=== PATIENT | male | born 1940 | race Caucasian/White ===

== ENCOUNTER → 2023-09-19 15:21 | Outpatient (REF) | payer MEDICARE, OTHER, SELFPAY ==
[2023-09-19 19:07] LABS: Urine Albumin 2+ (Neg - Trace); Urine Bilirubin Negative (Negative); Urine Character Very Cloudy (Clear); Urine Color Yellow; Urine Glucose Negative (Negative); Urine Ketone Trace (Negative); Urine Leukocyte 2+ (Negative); Urine Nitrite Positive (Negative); Urine Occult Blood 4+ (Negative); Urine Specific Gravity 1.015 (<1.030); Urine Urobilinogen Negative (Neg - 1+)
[2023-09-19 19:27] LABS: Urine Red Blood Cell >100 /HPF (0-2)
== END ==
LOC: CLAB 15:21
PROVIDERS: ATTENDING PHYSICIAN Specialist
DX: N39.0 Urinary tract infection, site not specified (principal)
CPT/HCPCS: 81003; 81015; 87086

== ENCOUNTER 2024-03-25 10:33 | Emergency (ER) | payer MEDICARE, OTHER, SELFPAY ==
[2024-03-25 12:47] VITALS: BP 137/89
--- NOTE | 2024-03-25 12:57 | ED.GENMED ---
History of Present Illness
General
Chief Complaint: Catheter/Tube Problem
Source: patient and spouse
Exam Limitations: other (aphasia)
Time Seen by Provider: 03/25/24 12:43
Nursing documentation reviewed up to this point in time: agreed with
History of Present Illness
History of Present Illness:
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
intermittent diarrhea. Per spouse, there has not been any vomiting or fever. Of note, when his catheter was exchanged at urologist office on , there was some difficulty with catheter insertion.
Past History
Past History
ED Past Medical History: Arrthythmia (Atrial fibrillation), COPD, CVA, HTN, Hypercholesterolemia and Other (BPH, UTI, chronic Jara catheter)
ED Past Surgical History: Other (Carotids, hernia repair)
Social History
Tobacco: Former smoker (Quit after CVA)
Alcohol: None
Personal:
Living: with family
Employment: Retired
Family History
Family History: Hypertension
Review of Systems
Review of Systems
Allergies reviewed?: Yes
All Other Systems: ROS reviewed and negative except as documented in HPI and ROS
Constitutional: Reports no symptoms
EENT: Reports no symptoms
Respiratory: Reports no symptoms
Cardiac: Reports no symptoms
ABD/GI: Reports abdominal pain and diarrhea; Denies nausea or vomiting
: Reports bleeding and other (Jara catheter removal)
Musculoskeletal: Reports no symptoms
Skin: Reports no symptoms
Neurological: Reports no symptoms
Phy Exam
Physical Exam
Physical Exam:
Physical Exam
General: mild distress, not acutely ill. afebrile
Head: nc/at. eomi
Neck: supple. normal range of motion
Heart: s1/s2 regular rate and rhythm, no murmur. equal radial pulses.
Lungs: no acute respiratory distress. clear bilaterally
Abdomen: normal bowel sounds. mild suprapubic/LLQ tenderness to palpation. no distention
Neuro: alert and awake. no focal neurological deficits
Skin: no rash
Extremities: no edema. no calf tenderness.
Course
Orders/Labs/Results
Orders:
Orders
03/25/24 12:56
Bladder Scan- Treatment ONCE
Jara Placement- Treatment ONCE
Reason for insertion: Chronic Jara on Admit
03/25/24 12:57
CT Abd/pelvis W Iv Cont Urgent
Comment:
Reason For Exam: LLQ pain
03/25/24 13:53
Complete Blood Count/With Diff Urgent
Comprehensive Metabolic Panel Urgent
Magnesium Urgent
Urinalysis Reflex To Culture Urgent
Date Specimen was Collected: 03/25/24
Time Specimen was Collected: 13:50
Urine Microscopic Reflex Cult Urgent
Urine Culture Urgent
NUSRAT Source: U
Specimen Description:
Date Specimen was Collected: 03/25/24
Time Specimen was Collected: 13:50
Abnormal Lab Results
03/25/24
13:53
WBC 17.3 H 10^3/uL
(4.8-10.8)
MCV 95.3 H fL
(80.0-94.0)
MCH 32.2 H pg
(27.0-31.0)
Abs Immat Gran (auto) 0.1 H 10^3/uL
(0-0.05)
Absolute Neuts (auto) 15.7 H 10^3/uL
(1.4-6.5)
Absolute Lymphs (auto) 0.6 L 10^3/uL
(1.2-3.4)
Absolute Monos (auto) 0.9 H 10^3/uL
(0.1-0.6)
Neutrophils % 90.8 H %
(42.2-75.2)
Lymphocytes % 3.3 L %
(20.5-51.1)
Carbon Dioxide 21 L mmol/L
(22-30)
BUN 24 H mg/dl
(9-20)
Creatinine 1.4 H mg/dL
(0.7-1.3)
Glucose 153 H mg/dl
(70-99)
Calcium 10.4 H mg/dl
(8.4-10.2)
Urine Ketones Trace A
(Negative)
Ur Occult Blood Reflex 4+ A
(Negative)
Leukocyte Esterase Rfl 2+ A
(Negative)
Urine RBC >100 A /HPF
(0-2)
Urine Albumin (Reflex) 3+ A
(Neg - Trace)
03/25/24 13:53
03/25/24 13:53
Vital Signs
Initial and Last Documented VS:
Initial Vital Signs
Temp Pulse Resp Pulse Ox
98.0 F 111 18 96
03/25/24 10:41 03/25/24 10:41 03/25/24 10:41 03/25/24 10:41
Last Documented Vital Signs
Temp Pulse Resp BP Pulse Ox
98.0 F 88 18 137/80 96
03/25/24 10:41 03/25/24 15:31 03/25/24 15:31 03/25/24 15:31 03/25/24 15:31
MDM/Problems Addressed
MDM/Problems Addressed:
Jara catheter successfully inserted in ED, with clearing of initial bloody urine during observation. CT abdomen pelvis ordered secondary to nonspecific abdominal discomfort, which revealed thickening of bladder without any other acute findings.
Leukocytosis noted on blood work likely secondary to ongoing intermittent diarrhea, likely viral in nature. Otherwise urinalysis does not indicate acute infection. Discussed treatment options with spouse at bedside. At this time, patient will be
discharged home for conservative management, without any antibiotics. Advised follow-up with his urologist or consider returning to ED with any worsening symptoms, i.e. fever/worsening pain/vomiting.
*Critical Care Note
Total Time (30-74mins, 75-104mins- exclusive of procedures): Not Applicable
ED Attending Note
-
Portions of this chart may have been created with voice recognition software.� Occasional wrong word or��sound alike� substitutions may have occurred due to the inherent limitations of voice recognition software.
Discharge Plan
Departure
Patient Disposition: Home (Routine Discharge)
Date of Disposition: 03/25/24
Time of Disposition: 16:42
Patient with high blood pressure during this ER visit?: Yes
Discharge Problem:
Encounter for Jaar catheter replacement
Instructions: How to Care for Your Jara Catheter, Male
Prescriptions:
No Action
acetaminophen [Tylenol Extra Strength] 500 MG tablet
1,000 mg PO Q6HPRN PRN (Reason: fever)
metoprolol succinate 25 mg Tablet Extended Release 24 Hr
12.5 mg PO HS
omega 7-npx-dcr-fish oil [Fish Oil] 1,000 mg (120 mg-180 mg) Capsule
1 cap PO HS
ezetimibe 10 MG tablet
10 mg PO Q48H@1900
Patient Comments:
amoxicillin-pot clavulanate 875-125 mg tablet
1 tab PO Q12H Qty: 14 0RF
atorvastatin 20 MG tablet
60 mg PO HS Qty: 60 0RF
cholecalciferol (vitamin D3) 2,000 UNITS tablet
2,000 units PO HS Qty: 30 0RF
Xarelto 20 MG tablet
20 mg PO HS Qty: 30 0RF
multivitamin with folic acid [Tab-A-Christie] 1 TABLET tablet
1 tab PO HS Qty: 30 0RF
Referrals:
Sonu Sandoval MD [Active] -
Cosme Klein MD [Family Provider] -
Activity Restrictions/Additional Instructions:
As discussed, please follow-up with your primary care physician and/or urologist with any further concerns. Please consider return to ED with worsening symptoms, i.e. fever/worsening pain/vomiting.
Interventions
Interventions:
*Risk Screen - Suicide Last Done: 03/25/24 10:41
*General Assessment Last Done: 03/25/24 10:41
*Neglect/Abuse Screening Last Done: 03/25/24 10:41
*ED COVID-19 Vaccine History Last Done: 03/25/24 10:41
ZZ-Xvccgt-Ogtydvklvo Assessment Last Done: 03/25/24 13:50
ED-Male Genitourinary Assessment Last Done: 03/25/24 13:50
Discharge Date and Time
Print Language: DANISH
[2024-03-25 13:00] VITALS: BP 144/107
[2024-03-25 13:50] VITALS: BMI 24.9
[2024-03-25 14:03] LABS: % Basophils 0.1 % (0-2); % Eosinophils 0.1 % (0-6); % Immature Granulocytes 0.3 % (0-0.5); % Lymphocytes 3.3 % (20.5-51.1); % Monocytes 5.4 % (1.7-9.3); % Neutrophils 90.8 % (42.2-75.2); Absolute Immature Granulocytes 0.1 10^3/uL (0-0.05); Absolute Lymphocytes 0.6 10^3/uL (1.2-3.4); Absolute Monocytes 0.9 10^3/uL (0.1-0.6); Absolute Neutrophils 15.7 10^3/uL (1.4-6.5); Hematocrit 46.2 % (39.0-52.0); Hemoglobin 15.6 g/dL (13.0-18.0); Mean Corp Hgb Conc. 33.8 g/dL (33.0-37.0); Mean Corpuscular Hgb 32.2 pg (27.0-31.0); Mean Corpuscular Volume 95.3 fL (80.0-94.0); Mean Platelet Volume 10.1 fL (7.4-10.4); Nucleated Red Blood Cells % 0 % (-); Platelet Count 237 10^3/uL (130-400); Red Blood Cell Count 4.85 10^6/uL (4.70-6.10); Red Cell Dist. Width 12.9 % (11.5-14.5); White Blood Cell Count 17.3 10^3/uL (4.8-10.8)
[2024-03-25 14:04] LABS: Urine Albumin 3+ (Neg - Trace); Urine Bilirubin Negative (Negative); Urine Character Bloody (Clear); Urine Color Red; Urine Glucose Negative (Negative); Urine Ketone Trace (Negative); Urine Leukocyte 2+ (Negative); Urine Nitrite Negative (Negative); Urine Occult Blood 4+ (Negative); Urine Specific Gravity 1.015 (<1.030); Urine Urobilinogen Negative (Neg - 1+); Urine pH 6.5 (5.0-9.0)
[2024-03-25 14:14] LABS: AST (SGOT) 36 U/L (17-59); Albumin 4.6 g/dl (3.5-5.0); Alkaline Phosphatase 117 U/L (38-126); Blood Urea Nitrogen 24 mg/dl (9-20); Calcium 10.4 mg/dl (8.4-10.2); Carbon Dioxide 21 mmol/L (22-30); Chloride 105 mmol/L (98-107); Estimated Creatinine Clearance 39 ml/min; Glucose 153 mg/dl (70-99); Magnesium 2.3 mg/dl (1.6-2.3); Potassium 4.5 mmol/L (3.5-5.1); Sodium 142 mmol/L (135-145); Total Bilirubin 0.7 mg/dl (0.2-1.3); Total Protein 7.7 g/dl (6.3-8.2); eGFR 49.56
[2024-03-25 14:20] LABS: ALT (SGPT) 41 U/L (0-50)
[2024-03-25 14:32] LABS: Urine Red Blood Cell >100 /HPF (0-2)
[2024-03-25 15:31] VITALS: BP 137/80
[2024-03-25 17:00] VITALS: BP 148/89
== END 2024-03-25 17:21 | disposition home or self-care (01) ==
LOC: EMR 10:33
PROVIDERS: EMERGENCY PHYSICIAN Emergency Medicine; FAMILY PHYSICIAN Family Medicine
DX: R10.32 Left lower quadrant pain (principal); Z46.6 Encounter for fitting and adjustment of urinary device; R19.7 Diarrhea, unspecified; E78.00 Pure hypercholesterolemia, unspecified; I10 Essential (primary) hypertension; J44.9 Chronic obstructive pulmonary disease, unspecified; I69.920 Aphasia following unspecified cerebrovascular disease; Z79.01 Long term (current) use of anticoagulants; Z87.891 Personal history of nicotine dependence
CPT/HCPCS: 99284; 51702; 74177; 80053; 81003; 81015; 83735; 85025; 87086; Q9967

== ENCOUNTER 2024-04-18 12:03 | Emergency (ER) | payer MEDICARE, OTHER, SELFPAY ==
[2024-04-18 12:06] VITALS: BP 137/86
[2024-04-18 12:49] VITALS: BP 147/80
[2024-04-18 13:10] VITALS: BP 147/80; BMI 23.5
[2024-04-18 13:22] LABS: Urine Albumin 1+ (Neg - Trace); Urine Bilirubin Negative (Negative); Urine Character Slightly Cloudy (Clear); Urine Color Yellow; Urine Glucose Negative (Negative); Urine Ketone Negative (Negative); Urine Leukocyte 2+ (Negative); Urine Nitrite Positive (Negative); Urine Occult Blood 4+ (Negative); Urine Specific Gravity 1.015 (<1.030); Urine Urobilinogen Negative (Neg - 1+)
--- NOTE | 2024-04-18 13:47 | ED.GENMED ---
Addendum entered and electronically signed by Lang Kruger PA-C 04/21/24 07:55:
Urine culture shows greater than 100,000 colony-forming units of staph. Sensitivities pending
Original Note:
History of Present Illness
General
Chief Complaint: Male Genito-Urinary Symptoms
Source: patient
Exam Limitations: dementia
Time Seen by Provider: 04/18/24 13:05
Nursing documentation reviewed up to this point in time: agreed with
History of Present Illness
History of Present Illness:
83-year-old male with past medical history of chronic indwelling Jara presenting to the emergency department with lack of Jara drainage since last night. Denies any abdominal pain or additional concerns. Does have a history of dementia most of
history is obtained through the . In no distress during my assessment.
Past History
Past History
ED Past Medical History: Arrthythmia (Atrial fibrillation), COPD, CVA, HTN, Hypercholesterolemia and Other (BPH, UTI, chronic Jara catheter)
ED Past Surgical History: Other (Carotids, hernia repair)
Social History
Tobacco: Former smoker (Quit after CVA)
Alcohol: None
Personal:
Living: with family
Employment: Retired
Family History
Family History: Hypertension
Review of Systems
Review of Systems
Allergies reviewed?: Yes
All Other Systems: ROS reviewed and negative except as documented in HPI and ROS
Phy Exam
Physical Exam
Physical Exam:
GENERAL: Alert , in no apparent distress
EYE: pupils equal and reactive
NECK: Supple, no significant adenopathy.
ENT: o/p clr, mmm.
CARDIAC: Regular rate and rhythm .
LUNGS: Clear breath sounds bilaterally, no acute respiratory distress, no wheezes/rales/rhonchi
ABDOMEN: Soft, without focal tenderness, no r/g, no cvat
NEUROLOGICAL: Alert , no focal neuro deficits
SKIN: Warm and dry, skin intact.
MUSCULOSKELETAL: No edema, well perfused.
PSYCH: Normal and appropriate interaction.
Course
Orders/Labs/Results
Orders:
Orders
04/18/24 13:11
Jara Placement- Treatment ONCE
Reason for insertion: Acute Retention
04/18/24 13:17
Urinalysis Reflex To Culture Urgent
Date Specimen was Collected: 04/18/24
Time Specimen was Collected: 13:11
Urine Microscopic Reflex Cult Urgent
Urine Culture Urgent
NUSRAT Source: U
Specimen Description:
Date Specimen was Collected: 04/18/24
Time Specimen was Collected: 13:11
04/18/24 13:47
Cephalexin Monohydrate [Keflex] 500 mg PO NOW STA
Abnormal Lab Results
04/18/24
13:17
Ur Occult Blood Reflex 4+ A
(Negative)
Urine Nitrite (Reflex) Positive A
(Negative)
Leukocyte Esterase Rfl 2+ A
(Negative)
Urine RBC 16-20 A /HPF
(0-2)
Urine WBC (Reflex) 70-80 A /HPF
(0-5)
Urine Bacteria (Reflex) Many A
(Negative)
Urine Albumin (Reflex) 1+ A
(Neg - Trace)
Vital Signs
Initial and Last Documented VS:
Initial Vital Signs
Temp Pulse Resp BP Pulse Ox
98.2 F 110 16 137/86 98
04/18/24 12:06 04/18/24 12:06 04/18/24 12:06 04/18/24 12:06 04/18/24 12:06
Last Documented Vital Signs
Temp Pulse Resp BP Pulse Ox
97.6 F 95 20 152/69 96
04/18/24 13:10 04/18/24 13:10 04/18/24 13:10 04/18/24 14:00 04/18/24 14:00
MDM/Problems Addressed
MDM/Problems Addressed:
83-year-old male presenting to the emergency department today with concerns of lack of drainage from his Jara catheter. This is an indwelling Jara catheter. No distress otherwise mildly tachycardic on arrival but improved without specific
treatment. Jara catheter replaced with full drainage of the bladder. This was confirmed with bladder scan. Urinalysis appears to be potentially infected this was treated with antibiotic otherwise stable for outpatient follow-up. Return
precautions given.
*Critical Care Note
Total Time (30-74mins, 75-104mins- exclusive of procedures): Not Applicable
ED Attending Note
-
Portions of this chart may have been created with voice recognition software.� Occasional wrong word or��sound alike� substitutions may have occurred due to the inherent limitations of voice recognition software.
Discharge Plan
Departure
Patient Disposition: Home (Routine Discharge)
Date of Disposition: 04/18/24
Time of Disposition: 13:48
Patient with high blood pressure during this ER visit?: No
Condition: Good
Covid-19: Not Applicable
Discharge Problem:
Acute UTI, Jara catheter problem
Instructions: Urinary Retention (DC)
Prescriptions:
New
cephalexin 500 mg capsule
500 mg PO BID 7 Days Qty: 14 0RF
No Action
acetaminophen [Tylenol Extra Strength] 500 MG tablet
1,000 mg PO Q6HPRN PRN (Reason: fever)
metoprolol succinate 25 mg Tablet Extended Release 24 Hr
12.5 mg PO HS
omega 7-wew-qsi-fish oil [Fish Oil] 1,000 mg (120 mg-180 mg) Capsule
1 cap PO HS
ezetimibe 10 MG tablet
10 mg PO Q48H@1900
Patient Comments:
amoxicillin-pot clavulanate 875-125 mg tablet
1 tab PO Q12H Qty: 14 0RF
atorvastatin 20 MG tablet
60 mg PO HS Qty: 60 0RF
cholecalciferol (vitamin D3) 2,000 UNITS tablet
2,000 units PO HS Qty: 30 0RF
Xarelto 20 MG tablet
20 mg PO HS Qty: 30 0RF
multivitamin with folic acid [Tab-A-Christie] 1 TABLET tablet
1 tab PO HS Qty: 30 0RF
Referrals:
Cosme Klein MD [Family Provider] -
Activity Restrictions/Additional Instructions:
You came to the emergency department today with concerns of difficulty with him. You had your Jara replaced. It does appear that you likely have a urinary tract infection. Please take prescribed antibiotic. Please follow closely with your
urologist. Return for any worsening, new or concerning symptoms.
Interventions
Interventions:
*Risk Screen - Suicide Last Done: 04/18/24 12:06
*General Assessment Last Done: 04/18/24 13:10
*Neglect/Abuse Screening Last Done: 04/18/24 12:06
ED- Fall Risk Assessment Last Done: 04/18/24 13:10
*ED COVID-19 Vaccine History Last Done: 04/18/24 13:10
*Nursing Disposition Last Done: 04/18/24 14:24
ED-Male Genitourinary Assessment Last Done: 04/18/24 13:10
Discharge Date and Time
Discharge Date/Time: 04/18/24 14:26
Print Language: DANISH
[2024-04-18 14:00] VITALS: BP 152/69
[2024-04-18 14:18] LABS: Urine Bacteria Many (Negative); Urine Red Blood Cell 16-20 /HPF (0-2); Urine White Cell 70-80 /HPF (0-5)
== END 2024-04-18 14:26 | disposition home or self-care (01) ==
LOC: EMR 12:03
PROVIDERS: Physician Assistant; EMERGENCY PHYSICIAN Student in an Organized Health Care Education/Training Program; FAMILY PHYSICIAN Family Medicine
DX: N39.0 Urinary tract infection, site not specified (principal); T83.091A Other mechanical complication of indwelling urethral catheter, initial encounter; Y84.8 Other medical procedures as the cause of abnormal reaction of the patient, or of later complication, without mention of misadventure at the time of the procedure; E78.00 Pure hypercholesterolemia, unspecified; I10 Essential (primary) hypertension; F03.90 Unspecified dementia, unspecified severity, without behavioral disturbance, psychotic disturbance, mood disturbance, and anxiety; J44.9 Chronic obstructive pulmonary disease, unspecified; I48.91 Unspecified atrial fibrillation; N40.0 Benign prostatic hyperplasia without lower urinary tract symptoms; Z86.73 Personal history of transient ischemic attack (TIA), and cerebral infarction without residual deficits; Z87.891 Personal history of nicotine dependence
CPT/HCPCS: 51702; 99283; 81003; 81015; 87086; 87147

== ENCOUNTER → 2024-05-25 12:55 | Outpatient (REF) | payer MEDICARE, OTHER, SELFPAY | LOC: SDSPAT 12:55 | PROVIDERS: ATTENDING PHYSICIAN Specialist; FAMILY PHYSICIAN Family Medicine | DX: N21.0 Calculus in bladder (principal) | CPT/HCPCS: 36415; 93005 ==

== ENCOUNTER 2024-06-02 06:35 | Day surgery (SDC) | payer MEDICARE, OTHER, SELFPAY ==
[2024-05-25 14:08] VITALS: BMI 25.2
[2024-06-02] VITALS (9 sets, daily range): BP systolic 127–173; BP diastolic 64–95; BMI 25.2
[2024-06-02 10:54] LABS: Urine Albumin 3+ (Neg - Trace); Urine Bilirubin Negative (Negative); Urine Character Clear (Clear); Urine Color Yellow; Urine Glucose Negative (Negative); Urine Ketone Negative (Negative); Urine Leukocyte 3+ (Negative); Urine Nitrite Negative (Negative); Urine Occult Blood 4+ (Negative); Urine Specific Gravity 1.025 (<1.030); Urine Urobilinogen Negative (Neg - 1+)
[2024-06-02] MEDS: NORMOSOL-R/PLASMALYTE-A 1000 IV (11:15)
[2024-06-02 12:50] LABS: Urine Calcium Oxalate Crystals Seen; Urine White Cell >100 /HPF (0-5)
[2024-06-02 12:51] LABS: Urine Bacteria Moderate (Negative); Urine Squamous Cell 0-2 /LPF (Few)
== END 2024-06-02 19:07 | disposition home or self-care (01) ==
LOC: SDS 06:35
PROVIDERS: ATTENDING PHYSICIAN Specialist
DX: N21.0 Calculus in bladder (principal); N31.2 Flaccid neuropathic bladder, not elsewhere classified; I69.198 Other sequelae of nontraumatic intracerebral hemorrhage
CPT/HCPCS: 52317; 81003; 81015; 82365; 87086; J1580

== ENCOUNTER → 2024-06-17 16:35 | Outpatient (REF) | payer MEDICARE, OTHER, SELFPAY ==
[2024-06-17 17:00] LABS: Urine Albumin 3+ (Neg - Trace); Urine Bilirubin Negative (Negative); Urine Character Cloudy (Clear); Urine Glucose Negative (Negative); Urine Ketone Negative (Negative); Urine Leukocyte 3+ (Negative); Urine Nitrite Positive (Negative); Urine Occult Blood 4+ (Negative); Urine Urobilinogen Negative (Neg - 1+)
[2024-06-17 17:11] LABS: Urine Color Pink
[2024-06-17 17:41] LABS: Urine Bacteria Moderate (Negative); Urine Red Blood Cell >100 /HPF (0-2); Urine White Cell >100 /HPF (0-5)
== END ==
LOC: CLAB 16:35
PROVIDERS: ATTENDING PHYSICIAN Specialist
DX: N39.0 Urinary tract infection, site not specified (principal)
CPT/HCPCS: 81003; 81015; 87077; 87086

== ENCOUNTER → 2024-11-02 11:39 | Outpatient (REF) | payer MEDICARE, OTHER, SELFPAY ==
[2024-11-02 19:42] LABS: Urine Character Cloudy (Clear)
[2024-11-02 19:54] LABS: Urine Squamous Cell 0-2 /LPF (Few)
[2024-11-02 19:55] LABS: Urine Red Blood Cell 0-2 /HPF (0-2); Urine White Cell 60-70 /HPF (0-5)
== END ==
LOC: CLAB 11:39
PROVIDERS: ATTENDING PHYSICIAN Specialist
DX: N39.0 Urinary tract infection, site not specified (principal)
CPT/HCPCS: 81003; 81015; 87086

== ENCOUNTER 2025-03-11 15:04 | Inpatient (IN) | payer MEDICARE, OTHER, SELFPAY ==
[2025-03-11] VITALS (7 sets, daily range): BP systolic 103–184; BP diastolic 54–90; BMI 22.3
--- NOTE | 2025-03-11 09:55 | ED.GENMED ---
History of Present Illness
General
Chief Complaint: Cold/Flu/URI Symptoms
Time Seen by Provider: 03/11/25 09:43
History of Present Illness
History of Present Illness:
84-year-old male with prior history of CVA with aphasia, dementia, chronic indwelling Jara, hypertension, A-fib on Xarelto presenting for fever, nausea, vomiting. Patient brought in by . Patient very limited historian given his underlying
history of prior CVA with aphasia and dementia. Patient arrives by medics, febrile, with evidence of vomitus. No additional history obtained at this time
Past History
Past History
ED Past Medical History: Arrthythmia (Atrial fibrillation), COPD, CVA, HTN, Hypercholesterolemia and Other (BPH, UTI, chronic Jara catheter)
ED Past Surgical History: Other (Carotids, hernia repair)
Social History
Tobacco: Former smoker (Quit after CVA)
Alcohol: None
Personal:
Living: with family
Employment: Retired
Family History
Family History: Hypertension
Phy Exam
Physical Exam
Physical Exam:
General: Dry mucous membrane
HEENT: protecting airway
Neck: appears supple
CV: Tachycardic, irregular regular rhythm
Resp: Mild tachypnea with rhonchi bilaterally
Abd: Mild distention with generalized tenderness, most focal to the right lower quadrant
Extremities: No deformities, no swelling
Neuro: alert, aphasic
: Chronic indwelling Jara, malodorous
Rectal: deferred
Psych: Normal affect
Skin: Intact
Sepsis
Sepsis Screening
Sepsis Assessment: Sepsis
Sepsis Screening: Lactate >2mmol/L
Sepsis Screen
Sepsis Screen: Sepsis
Date: 03/11/25
Time: 13:36
Course
Orders/Labs/Results
Orders:
Orders
03/11/25
Electrocardiogram (*1) Stat
Reason for Study: Chest Pain
Comment: DONE
03/11/25 09:47
Acetaminophen [Tylenol/Feverall] 650 mg .ROUTE .STK-MED ONE
03/11/25 09:50
Jara Placement- Treatment ONCE
Reason for insertion: Chronic Jara on Admit
0.9% Sodium Chloride 1000 ml [Nss] 1,000 ml IV BOLUS
Acetaminophen [Tylenol/Feverall] 650 mg RECTAL NOW STA
03/11/25 09:51
CT Abd/pelvis W Iv Cont Urgent
Comment:
Reason For Exam: lower abd pain, nausea, vomiting
Ondansetron Injectable [Zofran] 4 mg IV NOW STA
CR Chest Portable - 1 View Urgent
Comment:
Reason For Exam: sepsis
Reason Study Needs to be Portable: Patient Unstable
03/11/25 10:12
Complete Blood Count/With Diff Urgent
Comprehensive Metabolic Panel Urgent
Blood Culture Q30M
NUSRAT Source: Blood/Venous
Specimen Description:
Blood Culture Q30M
NUSRAT Source: Blood/Venous
Specimen Description:
03/11/25 10:14
COVID-19 Antigen Urgent
Source: Nasal Swab
Lactic Acid Q4H
Comment: CANCEL 2nd LACTIC ACID IF 1st LACTIC ACID IS LESS THAN 2
Urinalysis Reflex To Culture Urgent
Date Specimen was Collected: 03/11/25
Time Specimen was Collected: 10:12
Urine Microscopic Reflex Cult Urgent
Influenza A+B Rapid Molecular Urgent
NUSRAT Source: Nasal Swab
Specimen Description:
Urine Culture Urgent
NUSRAT Source: U
Specimen Description:
Date Specimen was Collected: 03/11/25
Time Specimen was Collected: 10:12
03/11/25 11:16
Cefepime HCl [Maxipime] 2,000 mg IV NOW STA
03/11/25 13:35
0.9% Sodium Chloride 1000 ml [Nss] 1,000 ml IV BOLUS
03/11/25 14:00
Lactic Acid Q4H
Comment: CANCEL 2nd LACTIC ACID IF 1st LACTIC ACID IS LESS THAN 2
Abnormal Lab Results
03/11/25 03/11/25
10:12 10:14
MCH 31.5 H pg
(27.0-31.0)
MPV 10.9 H fL
(7.4-10.4)
Absolute Neuts (auto) 8.5 H 10^3/uL
(1.4-6.5)
Absolute Lymphs (auto) 0.6 L 10^3/uL
(1.2-3.4)
Absolute Monos (auto) 0.9 H 10^3/uL
(0.1-0.6)
Neutrophils % 84.8 H %
(42.2-75.2)
Lymphocytes % 6.0 L %
(20.5-51.1)
Glucose 141 H mg/dl
(70-99)
Lactic Acid 3.4 H mmol/L
(0.7-2.0)
Ur Occult Blood Reflex 4+ A
(Negative)
Urine Nitrite (Reflex) Positive A
(Negative)
Leukocyte Esterase Rfl 3+ A
(Negative)
Urine RBC 16-20 A /HPF
(0-2)
Urine WBC (Reflex) >100 A /HPF
(0-5)
Urine Bacteria (Reflex) Many A
(Negative)
Urine Albumin (Reflex) 3+ A
(Neg - Trace)
SARS-CoV-2 Antigen Positive A
(Negative)
03/11/25 10:12
03/11/25 10:12
Vital Signs
Initial and Last Documented VS:
Initial Vital Signs
Temp Pulse Resp BP Pulse Ox
102.4 F H 109 18 152/90 96
03/11/25 10:03 03/11/25 10:03 03/11/25 10:03 03/11/25 10:03 03/11/25 10:03
Last Documented Vital Signs
Temp Pulse Resp BP Pulse Ox
102.4 F H 88 19 103/54 95
03/11/25 10:03 03/11/25 12:00 03/11/25 12:00 03/11/25 12:00 03/11/25 12:00
MDM/Problems Addressed
MDM/Problems Addressed:
84-year-old female with history of CVA with aphasia, A-fib on Xarelto, chronic indwelling Jara, hypertension, dementia presenting for fever and nausea/vomiting/diarrhea. Vital signs on arrival significant for fever, tachycardia.
On exam patient is in no acute distress, however does have dry mucous membranes and vital signs meeting SIRS criteria. Concern for sepsis with multiple source of infection. Patient with some mild tachypnea and increased work of breathing with
rhonchorous breath sounds. Possible pneumonia. Also chronic indwelling Jara catheter, malodorous. Possible UTI. Generalized tenderness to abdomen with focal right lower quadrant tenderness with concern for possible intra-abdominal source. Will
obtain laboratory analysis including cultures, lactic acid, chest x-ray and CT abdominal imaging. Will start patient on IV fluids and Tylenol administered for fever. Will also administer Zofran. Will change Jara catheter and send urine specimen
from new Jara
11:20 - Patient's urine does show evidence of UTI. Lactic acid is 3.4. COVID-positive which could be contributing to patient's symptoms. now at bedside, updated. Will start cefepime for UTI, continue IV fluids, pending CT abdomen pelvis as
well as chest x-ray. Currently hemodynamically stable
12:45 -chest x-ray without sign of pneumonia. CT of the abdomen pelvis shows severe constipation with possible stercoral colitis. Will add on metronidazole. At this time feel patient warrants admission for concern for sepsis, COVID-19 infection,
urinary tract infection. Attempted to disimpact, however stool burden too high to reach
*Pulse Oximetry
Patient hypoxic: no
*Critical Care Note
Total Time (30-74mins, 75-104mins- exclusive of procedures): Not Applicable
ED Attending Note
-
Portions of this chart may have been created with voice recognition software.� Occasional wrong word or��sound alike� substitutions may have occurred due to the inherent limitations of voice recognition software.
Discharge Plan
Departure
Prescriptions:
No Action
metoprolol succinate 25 mg Tablet Extended Release 24 Hr
12.5 mg PO HS
omega 9-lgm-rog-fish oil [Fish Oil] 1,000 mg (120 mg-180 mg) Capsule
1 cap PO DAILY
ezetimibe 10 MG tablet
10 mg PO Q48H
Patient Comments:
cholecalciferol (vitamin D3) 2,000 UNITS tablet
2,000 units PO DAILY
trazodone 50 mg Tablet
75 mg PO HS
methenamine hippurate 1 gram Tablet
1 g PO DAILY
Medical Marijuana
1 dose PO BID PRN (Reason: agitation)
atorvastatin 40 mg Tablet
60 mg PO HS
Theragen Tablet
1 tab PO DAILY
Xarelto 20 MG tablet
20 mg PO HS Qty: 30 0RF
Referrals:
Cosme Klein MD [Family Provider, Family Practice]
Interventions
Interventions:
*Neglect/Abuse Screening Last Done: 03/11/25 10:40
*ED COVID-19 Vaccine History Last Done: 03/11/25 10:40
*ED Influenza Vaccine History Last Done: 03/11/25 10:40
*Risk Screen - Suicide (C-SSRS) Last Done: 03/11/25 10:40
ED- Pulmonary Assessment Last Done: 03/11/25 10:41
Discharge Date and Time
Print Language: TURKISH
[2025-03-11] MEDS: TYLENOL/FEVERALL 650 MG RECTAL (10:21)
[2025-03-11] MEDS: NSS 1000 IV ×3 (10:24→16:45)
[2025-03-11] MEDS: ZOFRAN 4 MG IV (10:24)
[2025-03-11 10:27] LABS: Urine Character Slightly Cloudy (Clear)
[2025-03-11 10:30] LABS: Hematocrit 43.8 % (39.0-52.0); Hemoglobin 14.8 g/dL (13.0-18.0); Mean Corp Hgb Conc. 33.8 g/dL (33.0-37.0); Mean Corpuscular Volume 93.2 fL (80.0-94.0); Nucleated Red Blood Cells % 0 % (-); Platelet Count 184 10^3/uL (130-400); Red Cell Dist. Width 12.7 % (11.5-14.5)
[2025-03-11 10:37] LABS: ALT (SGPT) 22 U/L (0-50); AST (SGOT) 40 U/L (17-59); Albumin 4.2 g/dl (3.5-5.0); Alkaline Phosphatase 107 U/L (38-126); Blood Urea Nitrogen 18 mg/dl (9-20); Calcium 9.7 mg/dl (8.4-10.2); Carbon Dioxide 23 mmol/L (22-30); Chloride 105 mmol/L (98-107); Glucose 141 mg/dl (70-99); Potassium 4.0 mmol/L (3.5-5.1); Sodium 140 mmol/L (135-145); Total Protein 7.5 g/dl (6.3-8.2); eGFR > 60.00
[2025-03-11 10:46] LABS: Urine Red Blood Cell 16-20 /HPF (0-2); Urine White Cell >100 /HPF (0-5)
[2025-03-11 11:12] LABS: COVID-19 Antigen Positive (Negative)
[2025-03-11] MEDS: MAXIPIME 2000 MG IV (11:35)
--- NOTE | 2025-03-11 12:54 | W.PN.UPDATE ---
Update Note
Progress Note Update
This is an addendum do H&P written by MOBILE APPLICATION TESTER Abbi Spence
I saw and examined the patient.
The MOBILE APPLICATION TESTER's note was reviewed and I agree with the note.
Comment:
Mr. Primitivo Nathan is a 84 yo man with hx CVA with aphasia, essential HTN, paroxysmal afib on Xarelto, HLD, chronic holder, presents to the ER for fever, nausea, vomiting and confusion.
Triage VS: T 102.4, P 109, RR 18, BP 152/90, SpO2 96%
LABS: WBC 10, Hg 14.8, PLT 184, Na 140, K+ 4.0, Cl 105, CO2 23, Cr 1.0, Glucose 141, lactate 3.4, liver enzymes WNL
Covid positive
UA with > [address] A/P
IMPRESSION:
1. Severe fecal retention within the rectum, which is distended with stool and measures 7.5 cm in diameter. Findings may represent severe constipation and/or fecal impaction. Mild inflammatory change associated with the most inferior portion of the
rectum, which may be related to stercoral colitis.
2. Multiple large stones within the urinary bladder. No evidence of obstructive uropathy.
3. Ectasia of the abdominal aorta, which measures 2.5 cm in diameter.
CXR
IMPRESSION:
1. No acute pulmonary abnormality appreciated.
2. Hyperinflation, suggestive of COPD in the correct clinical setting. No significant change compared to prior study.
Covid +
Fever
TME 2/2 Above
Sepsis in setting of TME 2/2 Covid
Elevated lactate
-s/p 1L bolus, give additional based on weight
-IVF
-IV Remdesivir/Decadron if hypoxemia develops
-tylenol PRN fever
-PT/OT/ST consult
Urinary Tract Infection
Chronic Indwelling holder catheter
Hx Pseudomonas UTI
-holder exchanged in the ER
-continue IV Cefepime/ add on IV Vanc (given hx enterococcus if clinically worsening while awaiting culture results)
-follow up blood and urine cultures
Constipation
Sterocoral Colitis
-attempt at disimpaction in ER but too proximal
-enema
-bowel regimen
Hx CVA with Aphasia
-continue [employer] TEACHER Xarelto
-[employer]ID[employer] TEACHER Statin
Paroxysmal Atrial Fibrillation on Xarelto
-[employer] C[employer] AND [employer]IDES TEACHER Xarelto
-HOME C[employer] AND [employer] HE[employer] AIDES TEACHER Metoprolol
Essential HTN
-HOME C[employer] AND [employer] HE[employer]IDES TEACHER Metoprolol
76 minutes spent on patient care
--- NOTE | 2025-03-11 12:56 | HPS.HSE ---
Family Physician
-
Family Physician: Cosme Klein
Chief Complaint
-
fever, chills, nausea, vomiting
History of Present Illness
Patient is a 84-year-old male with past medical history significant for essential hypertension, hyperlipidemia, CAD, COPD, atrial fibrillation, dementia, neurogenic bladder and depression who presented to [facility] ED for evaluation of fever, chills,
nausea and vomiting. Patient nonverbal s/p CVA, at bedside to assist with HPI. She reports over the past week she has noticed increased fatigue and increased confusion, originally contributed to medical marijuana use and backed off his dosing.
He did not show improvement and then yesterday afternoon had profound weakness where she needed to call for assistance to get him out of the car into the house. She reported he seemed to improve after getting inside. This morning she went to get him
up from chair and patient had episode of emesis with noted fever so she brought patient for evaluation and treatment. Denies cough, shortness of breath or chest pain.
Medical History
Past Medical History
Past Medical History: Reports Other
Additional Past Medical History:
essential hypertension
hyperlipidemia
CAD
COPD
atrial fibrillation
dementia
neurogenic bladder
depression
Hx CVA
Past Surgical History: Reports Other
Additional Past Surgical History:
Hernia repair Left(2013) 07/07/2013
turp
transurethral cystolitholapaxy 05/2024
Social History
Unable to obtain full social history at this time due to: Dementia
Tobacco: Former Smoker
Drug: Marijuana (medical marijuana daily for behaviors )
Personal:
Living: With Family
Family History
Family History: Not pertinent
Allergies / Home Medications
Allergies reflects when Allergies were last updated in [employer].
Home Medications with original date entered in [employer]
Allergy/Medication List:
Allergies
Allergy/AdvReac Type Severity Reaction Status Date / Time
latex Allergy Intermediate Nausea / Verified 06/02/24 10:17
Vomiting
ciprofloxacin (From Cipro) Allergy elevated Verified 06/02/24 10:17
heart rate
Home Medications
rivaroxaban 20 mg tablet (Xarelto) 20 mg PO HS #30 tabs 10/06/20
ezetimibe 10 mg tablet 10 mg PO Q48H 02/22/23
metoprolol succinate 25 mg tablet,extended release 24 hr 12.5 mg PO HS 02/22/23
omega 6-lzk-niu-fish oil 1,000 mg (120 mg-180 mg) capsule (Fish Oil) 1 cap PO DAILY 02/22/23
Medical Marijuana 1 dose PO BID PRN agitation 05/26/24
cholecalciferol (vitamin D3) 50 mcg (2,000 unit) tablet 2,000 units PO DAILY 05/26/24
methenamine hippurate 1 gram tablet 1 g PO DAILY 05/26/24
trazodone 50 mg tablet 75 mg PO HS 05/26/24
atorvastatin 40 mg tablet 60 mg PO HS 03/11/25
therapeutic multivitamin 1 tab PO DAILY 03/11/25
Review of Systems
-
Unable to obtain full review of systems at this time due to: Dementia
History Source: Patient and Family
Constitutional: Reports Fever, Fatigue and Chills
Abdomen/GI: Reports Vomiting
: Reports Jara
Physical Exam
Vital Signs
Vital Signs
Temp Pulse Resp BP Pulse Ox
102.4 F H 88 19 103/54 95
03/11/25 10:03 03/11/25 12:00 03/11/25 12:00 03/11/25 12:00 03/11/25 12:00
Physical Exam
General: Well Developed, Well Nourished, No Apparent Distress and Comfortable
HEENT: NormoCephalic, PERRLA, Nose Appears Normal and Ears Appear Normal; No Moist mucous membranes
Respiratory: Clear, Non Labored Respirations and Decreased Breath Sounds
Cardiac: S1/S2 and Regular Rhythm; No Murmur, Rub, Gallop or Peripheral Edema
GI: Soft, Non Tender, Non Distended and Normal Bowel Sounds
Genito-urinary: Clear Urine and Jara
Musculoskeletal: No Clubbing, No Cyanosis and No Edema
Skin: Warm, Dry and IV/Catheter Site
Neuro: Awake and AO x 3
Psych: Calm
Laboratory Results
-
03/11/25 10:12
03/11/25 10:12
Laboratory Results
Lactic Acid 3.4 mmol/L (0.7-2.0) H 03/11/25 10:14
Total Bilirubin 0.9 mg/dl (0.2-1.3) 03/11/25 10:12
AST 40 U/L (17-59) 03/11/25 10:12
ALT 22 U/L (0-50) 03/11/25 10:12
Alkaline Phosphatase 107 U/L (38-126) 03/11/25 10:12
Data Reviewed
-
Diagnostic Radiology: Report Reviewed by me (CXR: 1. No acute pulmonary abnormality appreciated. 2. Hyperinflation, suggestive of COPD in the correct clinical setting. No significant change compared to prior study.)
CT Scan: Report Reviewed by me (Abd/Pel: 1. Severe fecal retention within the rectum, which is distended with stool and measures 7.5 cm in diameter. Findings may represent severe constipation and/or fecal impaction. Mild inflammatory change
associated with the most inferior portion of the rectum, which may be related to stercoral )
Medical Tests (Nuc Med, Echo, EKG etc): Report Reviewed by me (EKG: ATRIAL FIBRILLATION WITH RAPID VENTRICULAR RESPONSE ST and T WAVE ABNORMALITY, CONSIDER INFERIOR ISCHEMIA)
Lab Data: Labs Reviewed by me (WBC 10.0, Neut 84.8, Lactic 3.4)
Impression/Plan
-
IMPRESSION/PLAN:
#fatigue, fever, chills, nausea and vomiting 2/2 UTI vs. Covid vs. colitis
#sepsis
#UTI
#Covid
WBC 10.0, Neut 84.8, Lactic 3.4
UA: indicative of UTI
Urine Cx: pending
Blood Cx: pending
Covid: positive
Influenza: negative
EKG: ATRIAL FIBRILLATION WITH RAPID VENTRICULAR RESPONSE
ST and T WAVE ABNORMALITY, CONSIDER INFERIOR ISCHEMIA
CXR: 1. No acute pulmonary abnormality appreciated.
2. Hyperinflation, suggestive of COPD in the correct clinical setting. No significant change compared to prior study.
Abd/Pel CT: 1. Severe fecal retention within the rectum, which is distended with stool and measures 7.5 cm in diameter. Findings may represent severe constipation and/or fecal impaction. Mild
inflammatory change associated with the most inferior portion of the rectum, which may be related to stercoral colitis.
2. Multiple large stones within the urinary bladder. No evidence of obstructive uropathy.
3. Ectasia of the abdominal aorta, which measures 2.5 cm in diameter.
- Admit to telemetry
- IVF NSS 100cc/hr
- IV Cefepime 2gm
- supportive care
- trend lactic
#constipation
- enema x1
- bowel regimen
#essential hypertension
- continue metoprolol
#hyperlipidemia
- continue atorvastatin and ezetimibe
#atrial fibrillation
- continue metoprolol and Xarelto
#neurogenic bladder
chronic Jara catheter
- continue methenamine for UTI prophylaxis
#dementia
- continue trazodone
#CAD
#COPD
#depression
Code status: full code
DVT prophylaxis: Xarelto
[2025-03-11] MEDS: MAXIPIME 1000 MG IV ×2 (17:57→23:14)
[2025-03-11] MEDS: ZETIA 10 MG PO (17:57)
[2025-03-11] MEDS: STERILE WATER FOR INJECTION 10 ML IV ×2 (17:57→23:14)
[2025-03-11] MEDS: DESYREL 75 MG PO (21:17)
[2025-03-11] MEDS: LIPITOR 60 MG PO (21:18)
[2025-03-11] MEDS: TOPROL XL 12.5 MG PO (21:19)
[2025-03-11] MEDS: XARELTO 20 MG PO (21:21)
[2025-03-12] VITALS (9 sets, daily range): BP systolic 128–175; BP diastolic 57–104; BMI 22.3
[2025-03-12] MEDS: NSS 1000 IV ×2 (03:27→13:53)
[2025-03-12] MEDS: STERILE WATER FOR INJECTION 10 ML IV ×4 (05:09→23:52)
[2025-03-12] MEDS: MAXIPIME 1000 MG IV ×4 (05:09→23:51)
[2025-03-12 06:18] LABS: Hematocrit 37.3 % (39.0-52.0); Hemoglobin 13.1 g/dL (13.0-18.0); Mean Corp Hgb Conc. 35.1 g/dL (33.0-37.0); Mean Corpuscular Volume 94.9 fL (80.0-94.0); Platelet Count 153 10^3/uL (130-400); Red Cell Dist. Width 12.6 % (11.5-14.5)
[2025-03-12 07:10] LABS: Calcium 8.9 mg/dl (8.4-10.2); Carbon Dioxide 25 mmol/L (22-30); Chloride 105 mmol/L (98-107); Estimated Creatinine Clearance 60 ml/min; Glucose 85 mg/dl (70-99); Magnesium 1.9 mg/dl (1.6-2.3); Potassium 4.1 mmol/L (3.5-5.1); Sodium 137 mmol/L (135-145); eGFR > 60.00
[2025-03-12 07:18] LABS: Blood Urea Nitrogen 15 mg/dl (9-20)
[2025-03-12] MEDS: HIPREX PO (09:21)
[2025-03-12] MEDS: MIRALAX 17 GRAMS PO (09:22)
--- NOTE | 2025-03-12 12:31 | W.PN.HOSP.TC ---
Addendum entered and electronically signed by Robin Bagley MD 03/12/25 13:00:
Discussed with Ortho, nonoperative management. Will need tall boot which they will order. Nonweightbearing right lower extremity
Original Note:
Today's Communication/Plan
-
monitor vitals
see plan
ortho evaluation
start decadron
cw abx
discussed with spouse
follow fever curve
Assessment / Plan
Assessment / Plan
General: Well Developed, Well Nourished
HEENT: NormoCephalic,anicteric
Respiratory: Clear, Non Labored Respirations and Decreased Breath Sounds
Cardiac: S1/S2 and Regular Rhythm
GI: Soft, Non Tender, Non Distended and Normal Bowel Sounds
Genito-urinary: Holder
Musculoskeletal: No Edema
Neuro: Awake, aphasia
Psych: Calm
Covid +
Fever
TME likely 2/2 Above
Sepsis in setting of TME 2/2 Covid
Lactic acidosis, resolved
-IVF
No indication for remdesivir. Spouse agrees. Start Decadron
-tylenol PRN fever
Had a recent fall, right ankle x-ray with lucency along the tip of the lateral malleolus likely present nondisplaced fracture. likely non OP management. Orthopedics consulted
Hold Xarelto for now patient
Urinary Tract Infection
Chronic Indwelling holder catheter; exchanged in ED
Hx Pseudomonas UTI
-holder exchanged in the ER
-continue IV Cefepime, hx of pseudomonas
-follow up blood and urine cultures
Constipation
Sterocoral Colitis
-attempt at disimpaction in ER but too proximal
-enema
-bowel regimen
Hx CVA with Aphasia
-continue DETECTIVE PRECINCT Xarelto
-DETECTIVE PRECINCT Statin
Paroxysmal Atrial Fibrillation on Xarelto
-DETECTIVE PRECINCT Xarelto
-DETECTIVE PRECINCT Metoprolol
Essential HTN
-DETECTIVE PRECINCT Metoprolol
DVTppx
xarelto
Full code
I spent a total of 52 minutes with the patient or on the floor. More than 50% of this time involved counseling and coordination of care.
Anticipated Discharge: 24 - 48 hours
Subjective/Interval History
-
Date of Service: March 12, 2025
aphasic
Objective Data
-
Labs:
Laboratory Results
03/12/25
05:38
WBC 8.4
Hgb 13.1
Hct 37.3 L
Plt Count 153
Sodium 137
Potassium 4.1
Chloride 105
Carbon Dioxide 25
BUN 15
Creatinine 0.9
Glucose 85
Calcium 8.9
Vital Signs:
Vital Signs
Temp Pulse Resp BP Pulse Ox
100.6 F H 43 20 129/57 99
03/12/25 11:00 03/12/25 11:00 03/12/25 11:00 03/12/25 11:00 03/12/25 11:25
I&O
03/11/25 03/12/25 03/13/25
06:59 06:59 06:59
Intake Total 840 / 840
Output Total 200 / 200
Balance 640 / 640
[2025-03-12] MEDS: TYLENOL 650 MG PO (13:08)
[2025-03-12] MEDS: DECADRON 6 MG IV (13:53)
--- NOTE | 2025-03-12 14:54 | PTCARENOTE ---
assumed care of patient at 1330. Assessment remains the same, on tele monitor #27, at bedside, plan of care ongoing.
[2025-03-12] MEDS: DUONEB 3 ML INH (16:15)
--- NOTE | 2025-03-12 16:59 | CM ---
Alert awake forgetful patient who lives with his Yuridia who lives in a 2 story home with 1 step to enter and 14 steps to bed and bathroom. He is assisted in all activities of daily living.Spoke with on phone. Offered VN they requested [facility]N .
[facility]
Pharmacy [facility]
PCP DR Klein
PLAN Home with [facility] VN
[2025-03-12] MEDS: DESYREL 75 MG PO (21:22)
[2025-03-12] MEDS: LIPITOR 60 MG PO (21:23)
[2025-03-12] MEDS: XARELTO 20 MG PO (21:24)
[2025-03-12] MEDS: TOPROL XL 12.5 MG PO (21:27)
[2025-03-13] MEDS: NSS 1000 IV (00:09)
[2025-03-13 01:24] VITALS: BP 122/68
[2025-03-13 03:55] VITALS: BP 127/60
[2025-03-13] MEDS: MAXIPIME 1000 MG IV ×4 (05:18→23:02)
[2025-03-13] MEDS: STERILE WATER FOR INJECTION 10 ML IV ×4 (05:18→23:02)
[2025-03-13 08:48] LABS: Hematocrit 34.6 % (39.0-52.0); Hemoglobin 11.6 g/dL (13.0-18.0); Mean Corp Hgb Conc. 33.5 g/dL (33.0-37.0); Mean Corpuscular Volume 94.0 fL (80.0-94.0); Nucleated Red Blood Cells % 0 % (-); Platelet Count 139 10^3/uL (130-400); Red Cell Dist. Width 12.4 % (11.5-14.5)
[2025-03-13 09:07] VITALS: BP 116/64
[2025-03-13] MEDS: MIRALAX 17 GRAMS PO (09:19)
[2025-03-13 10:08] LABS: Blood Urea Nitrogen 12 mg/dl (9-20); Calcium 9.0 mg/dl (8.4-10.2); Carbon Dioxide 23 mmol/L (22-30); Chloride 109 mmol/L (98-107); Estimated Creatinine Clearance 67 ml/min; Glucose 112 mg/dl (70-99); Potassium 3.8 mmol/L (3.5-5.1); Sodium 136 mmol/L (135-145); eGFR > 60.00
[2025-03-13 12:17] VITALS: BP 139/82
--- NOTE | 2025-03-13 13:35 | CON.ORTHO ---
Consultation
-
Date/Time Consultation Requested: 03/12/2025 @ Unknown Time
Date/Time Consultation Performed: 03/13/2025 @ 10:50 AM
Requesting Provider: Robin Bagley MD
Performing Provider: Owen Justice PA-C for Dr. Billy Marquis MD
Reason for Consultation: Right Ankle Fracture
Consultation - Orthopedics
History
Orthopedic Surgery Note
CC: Right Ankle Pain s/p Mechanical Fall 03/10/2025
HPI: The patient is an 84-year-old male with a PMH significant for Essential Hypertension, Hyperlipidemia, CAD, COPD, Atrial fibrillation (on Xarelto), Dementia, Neurogenic bladder and Depression who presented to [facility] ED for evaluation of fevers,
chills, nausea and vomiting on 03/11/2024. He is currently being treated for COVID and UTI. is present at bedside. She reports that this past Saturday night, he sustained a mechanical fall and rolled his right ankle. She reports
that he was unable to weight-bear following this event. X-rays were obtained of the right ankle and revealed a lucency along the tip of the lateral malleolus, consistent with a nondisplaced fracture. He denies any hip pain, knee pain, or any pain
elsewhere. Orthopedic surgery was consulted for treatment recommendations moving forward.
PMH/PSH:
Past Medical History:
Essential hypertension
Hyperlipidemia
CAD
COPD
Atrial fibrillation
Dementia
Neurogenic bladder
Depression
Hx CVA
Past Surgical History:
Hernia repair Left
Turp
Transurethral cystolitholapay
Medications: Reviewed.
Family History: Family history was reviewed. Noncontributory.
Social history:
Unable to obtain full social history at this time due to: Dementia
Tobacco: Former Smoker
Drug: Marijuana (medical marijuana daily for behaviors )
Personal:
Living: With Family
Exam
General appearance: Pleasant. No acute distress.
Head: Normocephalic/atraumatic
Nose: No lesions or discharge.
Skin: No obvious rashes or open wounds
Lungs: No audible wheezing, no cough or sputum production
Musculoskeletal:
RLE: Physical examination of the right lower extremity does not reveal any obvious deformity, erythema, or warmth. Skin is intact. There is extensive ecchymosis noted about the right lateral ankle. There is tenderness to palpation over the distal
fibula. There is no tenderness to palpation over the medial malleolus or deltoid ligament. Remainder of the right ankle and foot nontender to palpation. Right knee and hip nontender to palpation. (-) Logroll. Ankle ROM deferred secondary to
known fracture. Calf is soft and nontender to palpation. NVI distally.
Imaging:
X-rays: CR Ankle - RIGHT 2 Views was obtained at [facility] on 03/11/2025 and was made available for my review today. Findings: Bones - There is irregularity along the tip of the lateral malleolus. Ankle mortise -The ankle mortise is
preserved. Soft tissue - Mild soft tissue swelling laterally. Impression: There is a lucency along the tip of the lateral malleolus which likely represents a nondisplaced fracture.
Assessment: 84-year-old male with acute right lateral ankle pain s/p mechanical fall Saturday03/10/2025. Based upon the patient's complaints, clinical exam, and radiographic findings, signs and symptoms at this time are most consistent with a
isolated lateral malleolus fracture.
Plan:
1) Radiographs reviewed with Dr. Marquis. We discussed that this fracture is amenable to non-operative management.
2) WBAT RLE in high-tide CAM boot. Will plan for approximately 4-6 weeks in boot followed by transitioning into Raptor ankle brace. Lawall consult placed for boot.
3) PT/OT.
4) Ice therapy and elevation for edema control. Pain control per primary team.
5) Orthopedic surgery will sign-off at this time. Please re-engage with any further questions or concerns. D/C information updated.
Allergies / Home Medications
Allergy/AdvReac Type Severity Reaction Status Date / Time
ciprofloxacin (From Cipro) Allergy elevated Verified 06/02/24 10:17
heart rate
latex Allergy Nausea / Verified 03/11/25 16:20
Vomiting
�Medication �Instructions �Recorded
rivaroxaban 20 mg tablet (Xarelto) 20 mg PO HS #30 tabs 10/06/20
ezetimibe 10 mg tablet 10 mg PO Q48H High Cholesterol 02/22/23
metoprolol succinate 25 mg 12.5 mg PO HS Heart 02/22/23
tablet,extended release 24 hr Disease/Condition
omega 2-utz-zgz-fish oil 1,000 mg 1 cap PO DAILY Supplement 02/22/23
(120 mg-180 mg) capsule (Fish Oil)
Medical Marijuana 1 dose PO BID PRN agitation 05/26/24
cholecalciferol (vitamin D3) 50 2,000 units PO DAILY Supplement 05/26/24
mcg (2,000 unit) tablet
methenamine hippurate 1 gram tablet 1 g PO DAILY Urinary Issue 05/26/24
trazodone 50 mg tablet 75 mg PO HS Sleep 05/26/24
atorvastatin 40 mg tablet 60 mg PO HS High Cholesterol 03/11/25
therapeutic multivitamin 1 tab PO DAILY Supplement 03/11/25
Vital Signs / Lab Results
Temp Pulse Resp BP Pulse Ox
98.2 F 84 18 139/82 96
03/13/25 12:17 03/13/25 12:17 03/13/25 12:17 03/13/25 12:17 03/13/25 12:17
03/13/25 07:24
03/13/25 07:24
--- NOTE | 2025-03-13 14:42 | W.PN.HOSP.TC ---
Today's Communication/Plan
-
Monitor vital signs and see plan
Spoke with orthopedics, weight-bear as tolerated in boot
Continue with Decadron
Discussed with spouse
Check EKG
Cefepime
Assessment / Plan
Assessment / Plan
General: Well Developed, Well Nourished
HEENT: NormoCephalic,anicteric
Respiratory: Clear, Non Labored Respirations and Decreased Breath Sounds
Cardiac: S1/S2 and Regular Rhythm
GI: Soft, Non Tender, Non Distended and Normal Bowel Sounds
Genito-urinary: Holder
Musculoskeletal: No Edema
Neuro: Awake, aphasia
Psych: Calm
Covid +
Fever
TME likely 2/2 Above
Sepsis in setting of TME 2/2 Covid
Lactic acidosis, resolved
-IVF
No indication for remdesivir. Spouse agrees. Started Decadron
-tylenol PRN fever
Had a recent fall, right ankle x-ray with lucency along the tip of the lateral malleolus likely present nondisplaced fracture. likely non OP management. Orthopedics following. WBAT RLE in high-tide CAM boot
PT evaluation
Urinary Tract Infection
Chronic Indwelling holder catheter; exchanged in ED
Hx Pseudomonas UTI
-holder exchanged in the ER
Urine culture with no growth. Check EKG. Consider Cipro
-follow up blood and urine cultures
Constipation
Sterocoral Colitis
-attempt at disimpaction in ER but too proximal
Status post enema, now with BM
-bowel regimen
Hx CVA with Aphasia
-continue LEAD RELAY TESTER Xarelto
-LEAD RELAY TESTER Statin
Paroxysmal Atrial Fibrillation on Xarelto
-LEAD RELAY TESTER Xarelto
-LEAD RELAY TESTER Metoprolol
Essential HTN
-LEAD RELAY TESTER Metoprolol
DVTppx
xarelto
Full code
I spent a total of 52 minutes with the patient or on the floor. More than 50% of this time involved counseling and coordination of care.
Anticipated Discharge: 24 - 48 hours
Subjective/Interval History
-
Date of Service: March 13, 2025
denies nausea
Objective Data
-
Labs:
Laboratory Results
03/13/25
07:24
WBC 5.4
Hgb 11.6 L
Hct 34.6 L
Plt Count 139
Sodium 136
Potassium 3.8
Chloride 109 H
Carbon Dioxide 23
BUN 12
Creatinine 0.8
Glucose 112 H
Calcium 9.0
Vital Signs:
Vital Signs
Temp Pulse Resp BP Pulse Ox
98.2 F 84 18 139/82 96
03/13/25 12:17 03/13/25 12:17 03/13/25 12:17 03/13/25 12:17 03/13/25 12:17
I&O
03/12/25 03/13/25 03/14/25
06:59 06:59 06:59
Intake Total 840 / 840 300 / 300
Output Total 200 / 200 1300 / 1300
Balance 640 / 640 -1000 / -1000
[2025-03-13] MEDS: DUONEB 3 ML INH (15:00)
[2025-03-13] MEDS: COLACE 100 MG PO ×2 (15:08→21:42)
[2025-03-13] MEDS: DECADRON 6 MG IV (15:08)
--- NOTE | 2025-03-13 15:38 | W.PN.UPDATE ---
Update Note
Progress Note Update
High-tide CAM boot placed by Orthopedics.
[2025-03-13 15:41] VITALS: BP 136/74
[2025-03-13] MEDS: ZETIA 10 MG PO (17:44)
[2025-03-13 19:49] VITALS: BP 141/74
[2025-03-13] MEDS: TOPROL XL 12.5 MG PO (21:40)
[2025-03-13] MEDS: XARELTO 20 MG PO (21:41)
[2025-03-13] MEDS: DESYREL 75 MG PO (21:41)
[2025-03-13] MEDS: LIPITOR 60 MG PO (21:42)
[2025-03-14] VITALS (8 sets, daily range): BP systolic 129–169; BP diastolic 57–78; PULSE 82
[2025-03-14] MEDS: MAXIPIME 1000 MG IV (05:03)
[2025-03-14] MEDS: STERILE WATER FOR INJECTION 10 ML IV (05:04)
[2025-03-14] MEDS: TYLENOL 650 MG PO (09:07)
[2025-03-14] MEDS: COLACE 100 MG PO ×2 (09:07→21:38)
[2025-03-14] MEDS: MIRALAX 17 GRAMS PO (09:07)
--- NOTE | 2025-03-14 11:51 | W.PN.HOSP.TC ---
Today's Communication/Plan
-
Monitor vital signs see plan
Physical therapy evaluation with bruit
Continue Decadron
Follow fever curve
Discontinue further antibiotic
Discussed with spouse, will need safe discharge plan
Assessment / Plan
Assessment / Plan
General: Well Developed, Well Nourished
HEENT: NormoCephalic,anicteric
Respiratory: Clear, Non Labored Respirations and Decreased Breath Sounds
Cardiac: S1/S2 and Regular Rhythm
GI: Soft, Non Tender, Non Distended and Normal Bowel Sounds
Genito-urinary: Holder
Musculoskeletal: No Edema, cam boot
Neuro: Awake, aphasia
Psych: Calm
Covid +
Fever
TME likely 2/2 Above
Sepsis in setting of TME 2/2 Covid
Lactic acidosis, resolved
-IVF
No indication for remdesivir especially given interactions. Spouse agrees. cw decadron as he did have bonchitis and wheezing
-tylenol PRN fever
Had a recent fall, right ankle x-ray with lucency along the tip of the lateral malleolus likely present nondisplaced fracture. likely non OP management. Orthopedics following. WBAT RLE in high-tide CAM boot. Patient to follow-up with orthopedics
outpatient
PT evaluation
Difficult situation as discussed with spouse. Spouse does not think he will do well at rehab given his dementia. Will see how patient does with physical therapy and will need to get enough resources at home.
Urinary Tract Infection
Chronic Indwelling holder catheter; exchanged in ED
Hx Pseudomonas UTI
-holder exchanged in the ER
Urine culture with no growth. DC further antibiotic
Constipation
Sterocoral Colitis
-attempt at disimpaction in ER but too proximal
Status post enema, now with BM
-bowel regimen
Hx CVA with Aphasia
-continue ENROLLMENT MANAGEMENT COORDINATOR Xarelto
-ENROLLMENT MANAGEMENT COORDINATOR Statin
Paroxysmal Atrial Fibrillation on Xarelto
-ENROLLMENT MANAGEMENT COORDINATOR Xarelto
-ENROLLMENT MANAGEMENT COORDINATOR Metoprolol
Essential HTN
-ENROLLMENT MANAGEMENT COORDINATOR Metoprolol
DVTppx
xarelto
Full code
Discussed with spouse
Anticipated Discharge: Within 24 hours
Subjective/Interval History
-
Date of Service: March 14, 2025
no overnight events
Objective Data
-
Labs:
Laboratory Results
03/14/25
06:00
WBC Pending
Hgb Pending
Hct Pending
Plt Count Pending
Sodium Pending
Potassium Pending
Chloride Pending
Carbon Dioxide Pending
BUN Pending
Creatinine Pending
Glucose Pending
Calcium Pending
Vital Signs:
Vital Signs
Temp Pulse Resp BP Pulse Ox
97.6 F 70 17 129/78 97
03/14/25 08:22 03/14/25 08:22 03/14/25 08:22 03/14/25 08:22 03/14/25 08:22
I&O
03/13/25 03/14/25 03/15/25
06:59 06:59 06:59
Intake Total 300 / 300 1440 / 1440
Output Total 1300 / 1300 1500 / 1500
Balance -1000 / -1000 -60 / -60
[2025-03-14 12:32] LABS: Hematocrit 35.4 % (39.0-52.0); Hemoglobin 12.4 g/dL (13.0-18.0); Mean Corp Hgb Conc. 35.0 g/dL (33.0-37.0); Mean Corpuscular Volume 90.8 fL (80.0-94.0); Nucleated Red Blood Cells % 0 % (-); Platelet Count 166 10^3/uL (130-400); Red Cell Dist. Width 12.6 % (11.5-14.5)
[2025-03-14 13:11] LABS: Blood Urea Nitrogen 12 mg/dl (9-20); Calcium 9.2 mg/dl (8.4-10.2); Carbon Dioxide 25 mmol/L (22-30); Chloride 104 mmol/L (98-107); Estimated Creatinine Clearance 67 ml/min; Glucose 92 mg/dl (70-99); Potassium 3.6 mmol/L (3.5-5.1); Sodium 136 mmol/L (135-145); eGFR > 60.00
[2025-03-14] MEDS: DECADRON 6 MG IV (16:07)
[2025-03-14] MEDS: DUONEB 3 ML INH (16:08)
[2025-03-14] MEDS: SEROQUEL 12.5 MG PO (18:41)
[2025-03-14] MEDS: DESYREL 75 MG PO (21:39)
[2025-03-14] MEDS: LIPITOR 60 MG PO (21:40)
[2025-03-14] MEDS: XARELTO 20 MG PO (21:41)
[2025-03-14] MEDS: TOPROL XL 12.5 MG PO (21:41)
[2025-03-15] VITALS (9 sets, daily range): BP systolic 110–175; BP diastolic 69–92; PULSE 85
[2025-03-15] MEDS: MIRALAX PO ×2 (09:40→10:42)
[2025-03-15] MEDS: COLACE PO ×3 (09:41→22:07)
[2025-03-15] MEDS: HIPREX 1 GRAM PO (09:41)
--- NOTE | 2025-03-15 10:07 | W.PN.HOSP.TC ---
Addendum entered and electronically signed by Nelia Jaffe MD 03/15/25 13:04:
patient was sleepy today from low dose Seroquel, hold off on further anti-psychotic meds as patient is very sensitive
hopefully stopping steroids will decrease agitation
Original Note:
Today's Communication/Plan
-
repeat CXR for increased cough
stop Decadron
Dispo planning for SNF
Assessment / Plan
Assessment / Plan
General: Well Developed, Well Nourished
HEENT: NormoCephalic,anicteric
Respiratory: Clear, Non Labored Respirations and Decreased Breath Sounds
Cardiac: S1/S2 and Regular Rhythm
GI: Soft, Non Tender, Non Distended and Normal Bowel Sounds
Genito-urinary: Holder
Musculoskeletal: No Edema, cam boot
Neuro: Awake, aphasia
Psych: Calm
Covid +
Fever
TME likely 2/2 Above
Sepsis in setting of TME 2/2 Covid
Lactic acidosis, resolved
No indication for remdesivir especially given interactions. Spouse agrees.
no wheezing heard on today's exam. Patient is not hypoxic. Stop Decadron (may be worsening delirium)
Had a recent fall, right ankle x-ray with lucency along the tip of the lateral malleolus likely present nondisplaced fracture. likely non OP management. Orthopedics following. WBAT RLE in high-tide CAM boot. Patient to follow-up with orthopedics
outpatient
PT evaluation
likely needs SNF
Urinary Tract Infection
Chronic Indwelling holder catheter; exchanged in ED
Hx Pseudomonas UTI
-holder exchanged in the ER
Urine culture with no growth. DC further antibiotic
Constipation
Sterocoral Colitis
-attempt at disimpaction in ER but too proximal
Status post enema, now with BM
-bowel regimen - will stop daily as he's now having loose stools
Hx CVA with Aphasia
-continue FOREST AIDE Xarelto
-FOREST AIDE Statin
Paroxysmal Atrial Fibrillation on Xarelto
-FOREST AIDE Xarelto
-FOREST AIDE Metoprolol
Essential HTN
-FOREST AIDE Metoprolol
DVTppx
xarelto
Full code
Discussed with spouse
Anticipated Discharge: 24 - 48 hours
Subjective/Interval History
-
Date of Service: March 15, 2025
patient seen with at bedside
notices increased cough/congestion; no fevers
Objective Data
-
Labs:
Laboratory Results
03/15/25
06:00
WBC Pending
Hgb Pending
Hct Pending
Plt Count Pending
Sodium Pending
Potassium Pending
Chloride Pending
Carbon Dioxide Pending
BUN Pending
Creatinine Pending
Glucose Pending
Calcium Pending
Vital Signs:
Vital Signs
Temp Pulse Resp BP Pulse Ox
97.3 F 65 18 157/74 96
03/15/25 07:43 03/15/25 07:43 03/15/25 07:43 03/15/25 07:43 03/15/25 07:43
I&O
03/14/25 03/15/25 03/16/25
06:59 06:59 06:59
Intake Total 1440 / 1440 580 / 580
Output Total 1500 / 1500 2425 / 2425
Balance -60 / -60 -1845 / -1845
Review of Systems
-
History Source: Patient
All other systems: Reviewed and negative
Physical Exam
-
General: No Apparent Distress and Appears Chronically Ill
HEENT: Other (referred upper airway noises )
Respiratory: Negative Wheezes
Cardiac: Regular Rhythm and S1/S2
GI: Soft and Nontender
Genito-urinary: Holder
Musculoskeletal: No Edema
Skin: Warm and Dry; Negative Rash
Neuro: AO x 3
Psych: Calm
Data Reviewed
-
Diagnostic Radiology: Report Reviewed by me
Labs: Labs Reviewed by me
[2025-03-15] MEDS: MUCINEX 600 MG PO ×2 (10:44→23:32)
[2025-03-15 13:48] LABS: Hematocrit 31.4 % (39.0-52.0); Hemoglobin 11.0 g/dL (13.0-18.0); Mean Corp Hgb Conc. 35.0 g/dL (33.0-37.0); Mean Corpuscular Volume 89.7 fL (80.0-94.0); Nucleated Red Blood Cells % 0 % (-); Platelet Count 159 10^3/uL (130-400); Red Cell Dist. Width 12.8 % (11.5-14.5)
--- NOTE | 2025-03-15 14:02 | PN.CDI ---
CDI
- -
CDI:
Physician Documentation Request
Admit Date: 03/11/25 15:04
Dear Doctor,
Patient admitted for sepsis.
03/15 Hospitalist PN: 'Urinary Tract Infection, Chronic Indwelling holder catheter; exchanged in ED...Urine culture with no growth. DC further antibiotic'
Please clarify the following:
____ - Urinary Tract Infection was present on admission and is now resolved.
____ - Urinary Tract Infection was present on admission and is still being monitored, evaluated or treated
____ - Urinary Tract Infection was ruled out
____ - Urinary Tract Infection is still a likely, suspected, probable diagnosis
____ - Other
____ - Unable to determine
Use of terms such as suspected, likely, concern for, or probable (associated with a specific diagnosis that is being evaluated, monitored, or treated as if it exists) are acceptable and can be coded in the inpatient setting, when documented at the
time of discharge.
Thank you,
Lena Scott RN, BSN
CDI Specialist
Available via [facility] text
Please use your independent medical judgment in providing your response.
[2025-03-15 14:04] LABS: Blood Urea Nitrogen 13 mg/dl (9-20); Calcium 8.9 mg/dl (8.4-10.2); Carbon Dioxide 30 mmol/L (22-30); Chloride 104 mmol/L (98-107); Estimated Creatinine Clearance 77 ml/min; Glucose 97 mg/dl (70-99); Potassium 3.4 mmol/L (3.5-5.1); Sodium 136 mmol/L (135-145); eGFR > 60.00
--- NOTE | 2025-03-15 16:05 | CM ---
PT recommends SNF.
Spoke with she requested [facility] referral which was done.
CM to check which snf can accpet.
PLAn To SNF after located
[2025-03-15] MEDS: ZETIA 10 MG PO (17:40)
[2025-03-15] MEDS: LIPITOR 60 MG PO (21:21)
[2025-03-15] MEDS: DESYREL 75 MG PO (21:26)
[2025-03-15] MEDS: XARELTO 20 MG PO ×2 (21:26→21:28)
[2025-03-15] MEDS: TOPROL XL 12.5 MG PO (21:28)
[2025-03-16 07:00] VITALS: BP 141/78
[2025-03-16] MEDS: COLACE PO ×2 (08:49→20:54)
[2025-03-16] MEDS: HIPREX 1 GRAM PO (08:50)
[2025-03-16] MEDS: MUCINEX 600 MG PO ×2 (08:50→20:53)
--- NOTE | 2025-03-16 09:04 | W.PN.HOSP.TC ---
Today's Communication/Plan
-
dispo planning for SNF
Assessment / Plan
Assessment / Plan
General: Well Developed, Well Nourished
HEENT: NormoCephalic,anicteric
Respiratory: Clear, Non Labored Respirations and Decreased Breath Sounds
Cardiac: S1/S2 and Regular Rhythm
GI: Soft, Non Tender, Non Distended and Normal Bowel Sounds
Genito-urinary: Jara
Musculoskeletal: No Edema, cam boot
Neuro: Awake, aphasia
Psych: Calm
Covid + sx onset 03/10
Fever
TME likely 2/2 Above
Sepsis in setting of TME 2/2 Covid
-Lactic acidosis, resolved
-No indication for remdesivir especially given interactions. Spouse agrees.
-no wheezing heard on today's exam. Patient is not hypoxic. Stop Decadron (may be worsening delirium)
Delirium
-steroids stopped as above
-patient very sensitive to anti-psychotics per , he responds to medical marijuana at home
Lateral malleolus non-dispaced fracture
-appreciate Ortho
- WBAT RLE in high-tide CAM boot. Patient to follow-up with orthopedics outpatient
-waiting on DC to SNF
-medically ready for DC
Urinary Tract Infection was ruled out
Constipation
Sterocoral Colitis
-attempt at disimpaction in ER but too proximal
Status post enema, now with BM
-bowel regimen - will stop daily as he's now having loose stools
Hx CVA with Aphasia
-continue NUTRITION PROGRAM INSTRUCTOR Xarelto
-NUTRITION PROGRAM INSTRUCTOR Statin
Paroxysmal Atrial Fibrillation on Xarelto
-NUTRITION PROGRAM INSTRUCTOR Xarelto
-NUTRITION PROGRAM INSTRUCTOR Metoprolol
Essential HTN
-NUTRITION PROGRAM INSTRUCTOR Metoprolol
DVTppx
xarelto
Full code
Discussed with spouse
Anticipated Discharge: Within 24 hours
Subjective/Interval History
-
Date of Service: March 16, 2025
no new complaints
seen with at bedside
Objective Data
-
Vital Signs:
Vital Signs
Temp Pulse Resp BP Pulse Ox
97.7 F 75 18 141/78 95
03/16/25 07:00 03/16/25 07:00 03/16/25 07:00 03/16/25 07:00 03/16/25 07:00
I&O
03/15/25 03/16/25 03/17/25
06:59 06:59 06:59
Intake Total 580 / 580
Output Total 2425 / 2425 750 / 750
Balance -1845 / -1845 -750 / -750
Review of Systems
-
History Source: Patient
All other systems: Reviewed and negative
Physical Exam
-
General: No Apparent Distress and Appears Chronically Ill
HEENT: Other (referred upper airway noises )
Respiratory: Negative Wheezes
Cardiac: Regular Rhythm and S1/S2
GI: Soft and Nontender
Genito-urinary: Jara
Musculoskeletal: No Edema
Skin: Warm and Dry; Negative Rash
Neuro: AO x 3
Psych: Calm
Data Reviewed
-
Diagnostic Radiology: Report Reviewed by me
Labs: Labs Reviewed by me
[2025-03-16 11:23] VITALS: BP 162/83
[2025-03-16 11:49] VITALS: BMI 22.3
[2025-03-16 15:04] VITALS: BP 147/69
[2025-03-16 15:46] VITALS: BP 150/75; PULSE 81; O2SAT 98
--- NOTE | 2025-03-16 17:10 | CM ---
PT recommends SNF.
[facility] do not have a bed for patient
Spoke with Medicare PACA data given to .
Requested additional SNF form
PLAn To SNF after located
[2025-03-16 22:28] VITALS: BP 164/87
[2025-03-16] MEDS: XARELTO 20 MG PO (22:30)
[2025-03-16] MEDS: DESYREL 75 MG PO (22:30)
[2025-03-16] MEDS: LIPITOR 60 MG PO (22:31)
[2025-03-16] MEDS: TOPROL XL 12.5 MG PO (22:32)
[2025-03-17 08:17] VITALS: BP 155/82
[2025-03-17] MEDS: MUCINEX 600 MG PO ×2 (08:21→20:43)
[2025-03-17] MEDS: COLACE PO ×2 (08:21→20:42)
[2025-03-17] MEDS: HIPREX 1 GRAM PO (08:21)
--- NOTE | 2025-03-17 10:18 | W.PN.HOSP.TC ---
Today's Communication/Plan
-
dispo planning for SNF
Assessment / Plan
Assessment / Plan
General: Well Developed, Well Nourished
HEENT: NormoCephalic,anicteric
Respiratory: Clear, Non Labored Respirations and Decreased Breath Sounds
Cardiac: S1/S2 and Regular Rhythm
GI: Soft, Non Tender, Non Distended and Normal Bowel Sounds
Genito-urinary: Jara
Musculoskeletal: No Edema, cam boot
Neuro: Awake, aphasia
Psych: Calm
Covid + sx onset 03/10
Fever
TME 2/2 Above
Sepsis in setting of TME 2/2 Covid
-Lactic acidosis, resolved
-No indication for remdesivir especially given interactions. Spouse agrees.
-stopped Decadron given increase in agitation; no wheezing on exam, not hypoxic
-medically ready for DC to SNF
Delirium
-steroids stopped as above
-patient very sensitive to anti-psychotics per , he responds to medical marijuana at home
Lateral malleolus non-dispaced fracture
-appreciate Ortho
- WBAT RLE in high-tide CAM boot. Patient to follow-up with orthopedics outpatient
-waiting on DC to SNF
-medically ready for DC
Urinary Tract Infection was ruled out
Constipation
Sterocoral Colitis
-attempt at disimpaction in ER but too proximal
Status post enema, now with BM
-bowel regimen - will stop daily as he's now having loose stools
Hx CVA with Aphasia
-continue CLINICAL DATA COORDINATOR Xarelto
-CLINICAL DATA COORDINATOR Statin
Paroxysmal Atrial Fibrillation on Xarelto
-CLINICAL DATA COORDINATOR Xarelto
-CLINICAL DATA COORDINATOR Metoprolol
Essential HTN
-CLINICAL DATA COORDINATOR Metoprolol
DVTppx
xarelto
Full code
Discussed with spouse
Anticipated Discharge: Within 24 hours
Subjective/Interval History
-
Date of Service: March 17, 2025
no new complaints
he's tired today
Objective Data
-
Vital Signs:
Vital Signs
Temp Pulse Resp BP Pulse Ox
98.4 F 72 16 155/82 95
03/17/25 08:17 03/17/25 08:17 03/17/25 08:17 03/17/25 08:17 03/17/25 08:24
I&O
03/16/25 03/17/25 03/18/25
06:59 06:59 06:59
Output Total 750 / 750 1350 / 1350
Balance -750 / -750 -1350 / -1350
Review of Systems
-
History Source: Patient
All other systems: Reviewed and negative
Physical Exam
-
General: No Apparent Distress and Appears Chronically Ill
HEENT: Normocephalic and Atraumatic
Respiratory: Negative Wheezes
Cardiac: Regular Rhythm and S1/S2
GI: Soft and Nontender
Genito-urinary: Jara
Musculoskeletal: No Edema
Skin: Warm and Dry; Negative Rash
Neuro: Awake and Alert
Psych: Calm and Confused
Data Reviewed
-
Diagnostic Radiology: Report Reviewed by me
Labs: Labs Reviewed by me
--- NOTE | 2025-03-17 11:45 | PN.CDI ---
CDI
- -
CDI:
Physician Documentation Request
Admit Date: 03/11/25 15:04
Dear Doctor,
[facility] is using an adapted version of the 2016 Third International Consensus Definitions for Sepsis and Septic Shock (Sepsis-3) where sepsis is defined as life threatening organ dysfunction caused by a deregulated host response to infection.
Please reference the official [facility] Sepsis Recognition Tool for further information, which can be found on the Intranet under Infection Prevention.
Clinical Indicators:
Patient admitted for covid.
03/17 Hospitalist PN: 'Covid + sx onset 03/10
Fever
TME 2/2 Above
Sepsis in setting of TME 2/2 Covid
-Lactic acidosis, resolved'
Temp: 102.4
HR: 109
Lactate: 3.4
Based on your medical judgment, can you please clarify whether or not the above organ dysfunction is related to or due to sepsis?
-- Sepsis due to Covid with organ dysfunction of TME and/or lactic acidosis
-- Sepsis due to Covid with organ dysfunction of
-- Other (please specify)
-- Clinically unable to determine��
Use of terms such as suspected, likely, concern for, or probable (associated with a specific diagnosis that is being evaluated, monitored, or treated as if it exists) are acceptable and can be coded in the inpatient setting when documented at the
time of discharge.
Please use your independent medical judgement in providing your response.
Thank you,
Lena Scott RN, BSN
CDI Specialist
Available via [facility] text
--- NOTE | 2025-03-17 12:34 | CM ---
PT recommends SNF.
[facility] for patient
Spoke with Medicare PACA data given to Yuridia who provided additional snf requests.
Referral for [facility] in [facility].
On isolation for Covid
PLAN To SNF after located
[2025-03-17 16:24] VITALS: BP 174/94
[2025-03-17] MEDS: ZETIA 10 MG PO (17:09)
[2025-03-17] MEDS: DESYREL 75 MG PO (21:49)
[2025-03-17] MEDS: LIPITOR 60 MG PO (21:49)
[2025-03-17] MEDS: TOPROL XL 12.5 MG PO (21:56)
[2025-03-17] MEDS: XARELTO 20 MG PO (21:56)
[2025-03-17 23:00] VITALS: BP 151/76
--- NOTE | 2025-03-18 07:23 | W.PN.HOSP.TC ---
Today's Communication/Plan
-
check labs
dispo planning
Assessment / Plan
Assessment / Plan
Covid + sx onset 03/10
Fever
TME 2/2 Above
Sepsis in setting of TME 2/2 Covid
Sepsis due to Covid with organ dysfunction of TME and/or lactic acidosis
-Lactic acidosis, resolved
-No indication for remdesivir especially given interactions. Spouse agrees.
-stopped Decadron given increase in agitation; no wheezing on exam, not hypoxic
-medically ready for DC to SNF
Delirium
-steroids stopped as above
-patient very sensitive to anti-psychotics per , he responds to medical marijuana at home
-obtain labs today to confirm electrolytes stable
Lateral malleolus non-dispaced fracture
-appreciate Ortho
- WBAT RLE in high-tide CAM boot. Patient to follow-up with orthopedics outpatient
-waiting on DC to SNF
-medically ready for DC
Urinary Tract Infection was ruled out
Constipation
Sterocoral Colitis
-attempt at disimpaction in ER but too proximal
Status post enema, now with BM
-bowel regimen - will stop daily as he's now having loose stools
Hx CVA with Aphasia
-continue LABORATORY SAMPLE CARRIER Xarelto
-LABORATORY SAMPLE CARRIER Statin
Paroxysmal Atrial Fibrillation on Xarelto
-LABORATORY SAMPLE CARRIER Xarelto
-LABORATORY SAMPLE CARRIER Metoprolol
Essential HTN
-LABORATORY SAMPLE CARRIER Metoprolol
DVTppx
xarelto
Full code
Discussed with spouse
Anticipated Discharge: Within 24 hours
Subjective/Interval History
-
Date of Service: March 18, 2025
patient is sleepy this morning
mentation waxing and waning throughout day
not eating much per
Objective Data
-
Labs:
Laboratory Results
03/18/25
06:00
Sodium Pending
Potassium Pending
Chloride Pending
Carbon Dioxide Pending
BUN Pending
Creatinine Pending
Glucose Pending
Calcium Pending
Vital Signs:
Vital Signs
Temp Pulse Resp BP Pulse Ox
98.2 F 97 16 151/76 96
03/17/25 23:00 03/17/25 23:00 03/17/25 23:00 03/17/25 23:00 03/17/25 23:00
I&O
03/17/25 03/18/25 03/19/25
06:59 06:59 06:59
Intake Total 100 / 100
Output Total 1350 / 1350 1750 / 1750
Balance -1350 / -1350 -1650 / -1650
Review of Systems
-
History Source: Patient
All other systems: Reviewed and negative
Physical Exam
-
General: No Apparent Distress and Appears Chronically Ill
HEENT: Normocephalic and Atraumatic
Respiratory: Negative Wheezes
Cardiac: Regular Rhythm and S1/S2
GI: Soft and Nontender
Genito-urinary: Jara
Musculoskeletal: No Edema
Skin: Warm and Dry; Negative Rash
Neuro: Awake and Alert
Psych: Calm and Confused
Data Reviewed
-
Diagnostic Radiology: Report Reviewed by me
Labs: Labs Reviewed by me
[2025-03-18 07:35] VITALS: BP 121/76
[2025-03-18] MEDS: COLACE PO ×2 (07:44→20:45)
[2025-03-18] MEDS: MUCINEX 600 MG PO ×2 (07:46→21:03)
[2025-03-18] MEDS: HIPREX 1 GRAM PO (07:46)
[2025-03-18 11:39] LABS: Blood Urea Nitrogen 8 mg/dl (9-20); Calcium 9.0 mg/dl (8.4-10.2); Carbon Dioxide 29 mmol/L (22-30); Chloride 102 mmol/L (98-107); Estimated Creatinine Clearance 77 ml/min; Glucose 84 mg/dl (70-99); Magnesium 2.1 mg/dl (1.6-2.3); Potassium 3.7 mmol/L (3.5-5.1); Sodium 135 mmol/L (135-145); eGFR > 60.00
[2025-03-18 16:30] VITALS: BP 172/91
[2025-03-18] MEDS: TYLENOL 650 MG PO (16:58)
[2025-03-18] MEDS: TOPROL XL 12.5 MG PO (20:57)
[2025-03-18] MEDS: LIPITOR 60 MG PO (20:58)
[2025-03-18] MEDS: DESYREL 75 MG PO (21:02)
[2025-03-18] MEDS: XARELTO 20 MG PO (21:02)
[2025-03-18 23:43] VITALS: BP 158/96
[2025-03-19 08:00] VITALS: BP 163/97
--- NOTE | 2025-03-19 08:54 | W.PN.HOSP.TC ---
Today's Communication/Plan
-
dispo planning
Assessment / Plan
Assessment / Plan
Covid + sx onset 03/10
Fever
TME 2/2 Above
Sepsis in setting of TME 2/2 Covid
Sepsis due to Covid with organ dysfunction of TME and/or lactic acidosis
-Lactic acidosis, resolved
-No indication for remdesivir especially given interactions. Spouse agrees.
-stopped Decadron given increase in agitation; no wheezing on exam, not hypoxic
-medically ready for DC to SNF
Delirium
-steroids stopped as above
-patient very sensitive to anti-psychotics per , he responds to medical marijuana at home
-labs stable
patient with hypoactive delirium/fatigue in setting of covid and prolonged hospitalization - needs SNF
Lateral malleolus non-dispaced fracture
-appreciate Ortho
- WBAT RLE in high-tide CAM boot. Patient to follow-up with orthopedics outpatient
-waiting on DC to SNF
-medically ready for DC
Urinary Tract Infection was ruled out
Constipation
Sterocoral Colitis
-attempt at disimpaction in ER but too proximal
Status post enema, now with BM
-bowel regimen - will stop daily as he's now having loose stools
Hx CVA with Aphasia
-continue SAFETY CLOTHING AND EQUIPMENT DEVELOPER Xarelto
-SAFETY CLOTHING AND EQUIPMENT DEVELOPER Statin
Paroxysmal Atrial Fibrillation on Xarelto
-SAFETY CLOTHING AND EQUIPMENT DEVELOPER Xarelto
-SAFETY CLOTHING AND EQUIPMENT DEVELOPER Metoprolol
Essential HTN
-SAFETY CLOTHING AND EQUIPMENT DEVELOPER Metoprolol
DVTppx
xarelto
Full code
Discussed with spouse
Anticipated Discharge: Within 24 hours
Subjective/Interval History
-
Date of Service: March 19, 2025
appears fatigued
eating a little, ensure ordered
denies pain
Objective Data
-
Vital Signs:
Vital Signs
Temp Pulse Resp BP Pulse Ox
99.9 F 92 18 163/97 95
03/19/25 08:00 03/19/25 08:00 03/19/25 08:00 03/19/25 08:00 03/19/25 08:00
I&O
03/18/25 03/19/25 03/20/25
06:59 06:59 06:59
Intake Total 100 / 100
Output Total 1750 / 1750 600 / 600
Balance -1650 / -1650 -600 / -600
Review of Systems
-
History Source: Patient
All other systems: Reviewed and negative
Physical Exam
-
General: No Apparent Distress and Appears Chronically Ill
HEENT: Normocephalic and Atraumatic
Respiratory: Negative Wheezes
Cardiac: Regular Rhythm and S1/S2
GI: Soft and Nontender
Genito-urinary: Jara
Musculoskeletal: No Edema
Skin: Warm and Dry; Negative Rash
Neuro: Awake and Alert
Psych: Calm and Confused
Data Reviewed
-
Diagnostic Radiology: Report Reviewed by me
Labs: Labs Reviewed by me
[2025-03-19] MEDS: COLACE 100 MG PO ×2 (09:03→21:14)
[2025-03-19] MEDS: MUCINEX 600 MG PO ×2 (09:03→21:13)
[2025-03-19] MEDS: HIPREX 1 GRAM PO (09:03)
--- NOTE | 2025-03-19 14:45 | CM ---
Addendum entered by Tania Angel 03/19/25 16:49:
Referrals sent to the following facilites:
[facility] Phone
[facility] Phone
[facility] Phone
[facility] Phone
[facility] Phone
[facility] Phone
[facility]
[employer] Assistant
Original Note:
CM following for SNF admission. Pt was Covid positive 03/11/2025 @10:14AM
Referrals sent to [facility]; awaiting response for bed availability.
Additional referrals sent to [facility] who declined the referral. [facility] also declined referral, as there is no male bed available.
[2025-03-19 15:11] VITALS: BP 170/87; PULSE 106; O2SAT 95
[2025-03-19 15:21] VITALS: BP 170/87
[2025-03-19 17:15] VITALS: BP 152/98
[2025-03-19] MEDS: ZETIA 10 MG PO (17:20)
[2025-03-19] MEDS: XARELTO 20 MG PO (21:13)
[2025-03-19] MEDS: DESYREL 75 MG PO (21:13)
[2025-03-19] MEDS: LIPITOR 60 MG PO (21:14)
[2025-03-19] MEDS: TOPROL XL 12.5 MG PO (21:15)
[2025-03-19 23:00] VITALS: BP 132/71
[2025-03-20 07:00] VITALS: BP 156/100
--- NOTE | 2025-03-20 08:59 | W.PN.HOSP.TC ---
Today's Communication/Plan
-
dispo planning, appreciate CM
Assessment / Plan
Assessment / Plan
Covid + sx onset 03/10
Fever
TME 2/2 Above
Sepsis in setting of TME 2/2 Covid
Sepsis due to Covid with organ dysfunction of TME and/or lactic acidosis
-Lactic acidosis, resolved
-No indication for remdesivir especially given interactions. Spouse agrees.
-stopped Decadron given increase in agitation; no wheezing on exam, not hypoxic
-medically ready for DC to SNF
Delirium
-steroids stopped as above
-patient very sensitive to anti-psychotics per , he responds to medical marijuana at home
-patient with minimal PO intake although improved 03/19 per . Ensure ordered, labs stable
patient with hypoactive delirium/fatigue in setting of covid and prolonged hospitalization - needs SNF.
Lateral malleolus non-dispaced fracture
-appreciate Ortho
- WBAT RLE in high-tide CAM boot. Patient to follow-up with orthopedics outpatient
-waiting on DC to SNF
-medically ready for DC
Urinary Tract Infection was ruled out
Constipation
Sterocoral Colitis
-attempt at disimpaction in ER but too proximal
Status post enema, now with BM
-bowel regimen - will stop daily as he's now having loose stools
Hx CVA with Aphasia
-continue ACQUISITIONS LOGISTICS ANALYST Xarelto
-ACQUISITIONS LOGISTICS ANALYST Statin
Paroxysmal Atrial Fibrillation on Xarelto
-ACQUISITIONS LOGISTICS ANALYST Xarelto
-ACQUISITIONS LOGISTICS ANALYST Metoprolol
Essential HTN
-ACQUISITIONS LOGISTICS ANALYST Metoprolol
DVTppx
xarelto
Full code
Discussed with spouse
Anticipated Discharge: Within 24 hours
Subjective/Interval History
-
Date of Service: March 20, 2025
patient waking up
per , he ate more yesterday
Objective Data
-
Vital Signs:
Vital Signs
Temp Pulse Resp BP Pulse Ox
99.2 F 93 18 156/100 94
03/20/25 07:00 03/20/25 07:00 03/20/25 07:00 03/20/25 07:00 03/20/25 07:00
I&O
03/19/25 03/20/25 03/21/25
06:59 06:59 06:59
Intake Total 400 / 400
Output Total 600 / 600 765 / 765
Balance -600 / -600 -365 / -365
Review of Systems
-
Unable to obtain full review of systems at this time due to: Dementia
History Source: Patient
Physical Exam
-
General: No Apparent Distress and Appears Chronically Ill
HEENT: Normocephalic and Atraumatic
Respiratory: Negative Wheezes
Cardiac: Regular Rhythm and S1/S2
GI: Soft and Nontender
Genito-urinary: Jara
Musculoskeletal: No Edema
Skin: Warm and Dry; Negative Rash
Neuro: Awake and Alert
Psych: Calm and Confused
Data Reviewed
-
Diagnostic Radiology: Report Reviewed by me
Labs: Labs Reviewed by me
[2025-03-20] MEDS: COLACE PO ×2 (10:06→10:16)
[2025-03-20] MEDS: HIPREX 1 GRAM PO (10:06)
[2025-03-20] MEDS: MUCINEX 600 MG PO ×2 (10:07→21:43)
[2025-03-20 15:00] VITALS: BP 145/79
[2025-03-20] MEDS: TYLENOL 650 MG PO (18:28)
[2025-03-20] MEDS: LIPITOR 60 MG PO (21:44)
[2025-03-20] MEDS: XARELTO 20 MG PO (21:44)
[2025-03-20] MEDS: DESYREL 75 MG PO (21:44)
[2025-03-20] MEDS: COLACE 100 MG PO (21:44)
[2025-03-20] MEDS: TOPROL XL 12.5 MG PO (21:45)
[2025-03-20 22:33] VITALS: BP 132/60
[2025-03-21 07:00] VITALS: BP 155/82
--- NOTE | 2025-03-21 09:01 | W.PN.HOSP.TC ---
Today's Communication/Plan
-
dispo planning for SNF
-last day covid isolation today (s/p 10 days)
Assessment / Plan
Assessment / Plan
Covid +, sx onset 03/10-03/11; --> today (03/21) is last day of precautions
Fever
TME 2/2 Above
Sepsis in setting of TME 2/2 Covid
Sepsis due to Covid with organ dysfunction of TME and/or lactic acidosis
-Lactic acidosis, resolved
-No indication for Remdesivir especially given interactions. Spouse agrees.
-stopped Decadron given increase in agitation; no wheezing on exam, not hypoxic
-medically ready for DC to SNF
Delirium
-steroids stopped as above
-patient very sensitive to anti-psychotics per , he responds to medical marijuana at home
-patient with minimal PO intake although improved 03/19 per . Ensure ordered, labs stable
patient with hypoactive delirium/fatigue in setting of covid and prolonged hospitalization - needs SNF.
Lateral malleolus non-displaced fracture
-appreciate Ortho
-WBAT RLE in high-tide CAM boot. Patient to follow-up with orthopedics outpatient
-waiting on DC to SNF
-medically ready for DC
Urinary Tract Infection was ruled out
Constipation
Stercoral Colitis
-attempt at disimpaction in ER but too proximal
-he is status post enema, now with BM's
-bowel regimen - will stop daily as he's now having loose stools
Hx CVA with Aphasia
-continue MOLDING ASSOCIATE Xarelto
-MOLDING ASSOCIATE Statin
Paroxysmal Atrial Fibrillation on Xarelto
-MOLDING ASSOCIATE Xarelto
-MOLDING ASSOCIATE Metoprolol
Essential HTN - MOLDING ASSOCIATE Metoprolol
DVTppx Xarelto
Full code
Discussed with spouse
Anticipated Discharge: Within 24 hours
Subjective/Interval History
-
Date of Service: March 21, 2025
patient alert, happy this morning
Objective Data
-
Vital Signs:
Vital Signs
Temp Pulse Resp BP Pulse Ox
99.0 F 106 18 155/82 96
03/21/25 07:00 03/21/25 07:00 03/21/25 07:00 03/21/25 07:00 03/21/25 07:00
I&O
03/20/25 03/21/25 03/22/25
06:59 06:59 06:59
Intake Total 400 / 400 600 / 600
Output Total 765 / 765 1150 / 1150
Balance -365 / -365 -550 / -550
Review of Systems
-
History Source: Patient
All other systems: Reviewed and negative
Physical Exam
-
General: No Apparent Distress and Appears Chronically Ill
HEENT: Normocephalic and Atraumatic
Respiratory: Negative Wheezes
Cardiac: Regular Rhythm and S1/S2
GI: Soft and Nontender
Genito-urinary: Jara
Musculoskeletal: No Edema
Skin: Warm and Dry; Negative Rash
Neuro: Awake and Alert
Psych: Calm and Confused
Data Reviewed
-
Diagnostic Radiology: Report Reviewed by me
Labs: Labs Reviewed by me
[2025-03-21] MEDS: MUCINEX 600 MG PO (09:23)
[2025-03-21] MEDS: HIPREX 1 GRAM PO (09:23)
[2025-03-21] MEDS: TYLENOL 1000 MG PO (09:23)
[2025-03-21] MEDS: COLACE PO ×3 (09:23→23:26)
--- NOTE | 2025-03-21 12:58 | CM ---
funeral home manager continues to follow with patient progress and patient is off isolation, manager floor reached out to [facility], [facility], [facility], [facility], and [facility] and faxed updated notes.
Plan; To follow up with above facilities to see if they can accept patient.
--- NOTE | 2025-03-21 14:43 | W.PN.UPDATE ---
Update Note
Progress Note Update
Disposition : SNF
Primary care physician : Dr. Cosme Klein
Principal Discharge diagnosis : weakness secondary to Covid-19; lateral malleolus non-displaced fracture
Hospital Course :
Mr. Primitivo Nathan is a 84 yo man with hx CVA with aphasia, essential HTN, paroxysmal afib on Xarelto, HLD, chronic holder, presents to the ER for fever, nausea, vomiting and confusion.
Triage vitals significant for T 102.4, pulse 109. WBC 10, Hg 14.8, Cr 1, lactate 3.4. Covid positive. CXR without acute infectious process. Patient was admitted for sepsis 2/2 Covid-19. He was given fluids and supportive care. He received a
short course of steroids which were then stopped as he had worsened delirium and no further wheezing on exam.
Of note patient had a fall prior to admission and x-ray showed lateral malleolus non-displaced fracture. He was seen by orthopedics, non-operative management recommended. He is advised WBAT in high-tide CAM boot for 4-6 weeks followed by transition
into Raptor ankle brace. He will follow up with orthopedics as outpatient.
Patient with weakness and poor PO intake that is slowly improving.
SNF recommended. He remained in-house while awaiting bed availability.
Important imaging findings :
Ankle X-Ray
IMPRESSION:
There is a lucency along the tip of the lateral malleolus which likely represents a nondisplaced fracture.
CT A/P
IMPRESSION:
1. Severe fecal retention within the rectum, which is distended with stool and measures 7.5 cm in diameter. Findings may represent severe constipation and/or fecal impaction. Mild inflammatory change associated with the most inferior portion of the
rectum, which may be related to stercoral colitis.
2. Multiple large stones within the urinary bladder. No evidence of obstructive uropathy.
3. Ectasia of the abdominal aorta, which measures 2.5 cm in diameter.
CXR
IMPRESSION:
1. No acute pulmonary abnormality appreciated.
2. Hyperinflation, suggestive of COPD in the correct clinical setting. No significant change compared to prior study.
[2025-03-21 15:00] VITALS: BP 130/79
[2025-03-21] MEDS: ZETIA 10 MG PO (18:25)
[2025-03-21] MEDS: TYLENOL PO ×2 (23:26→23:35)
[2025-03-21] MEDS: DESYREL PO ×2 (23:26→23:35)
[2025-03-21] MEDS: MUCINEX PO ×2 (23:26→23:35)
[2025-03-21] MEDS: LIPITOR PO ×2 (23:27→23:35)
[2025-03-21] MEDS: TOPROL XL PO ×2 (23:28→23:35)
[2025-03-21] MEDS: XARELTO PO ×2 (23:29→23:36)
[2025-03-22 00:37] VITALS: BP 146/83
[2025-03-22 07:00] VITALS: BP 153/81
[2025-03-22] MEDS: TYLENOL 1000 MG PO ×2 (09:22→23:29)
[2025-03-22] MEDS: MUCINEX 600 MG PO ×2 (09:22→23:29)
[2025-03-22] MEDS: HIPREX 1 GRAM PO (09:22)
[2025-03-22] MEDS: COLACE PO (09:23)
[2025-03-22 10:13] LABS: Hematocrit 39.5 % (39.0-52.0); Hemoglobin 13.7 g/dL (13.0-18.0); Mean Corp Hgb Conc. 34.7 g/dL (33.0-37.0); Mean Corpuscular Volume 91.6 fL (80.0-94.0); Nucleated Red Blood Cells % 0 % (-); Platelet Count 205 10^3/uL (130-400); Red Cell Dist. Width 12.6 % (11.5-14.5)
[2025-03-22 10:27] LABS: Blood Urea Nitrogen 15 mg/dl (9-20); Calcium 8.2 mg/dl (8.4-10.2); Carbon Dioxide 28 mmol/L (22-30); Chloride 102 mmol/L (98-107); Estimated Creatinine Clearance 67 ml/min; Glucose 84 mg/dl (70-99); Potassium 3.6 mmol/L (3.5-5.1); Sodium 134 mmol/L (135-145); eGFR > 60.00
--- NOTE | 2025-03-22 10:38 | CM ---
said if afebrile pt will be off isolation tomorrow.
Spoke with [facility] she will check referral.
[facility] pending isolation bed.
PLAN Locate SNF
--- NOTE | 2025-03-22 12:34 | W.PN.HOSP.TC ---
Today's Communication/Plan
-
Monitor vital signs see plan
Follow fever curve
Discussed with spouse
Placement
Assessment / Plan
Assessment / Plan
Covid +, sx onset 03/10-03/11; --> alert temp 03/22. Continue with isolation at this time. Will need to be afebrile for 24 hours and then we will DC isolation
Fever
TME 2/2 Above
Sepsis in setting of TME 2/2 Covid
Sepsis due to Covid with organ dysfunction of TME and/or lactic acidosis
-Lactic acidosis, resolved
-No indication for Remdesivir especially given interactions. Spouse agrees.
-stopped Decadron given increase in agitation; no wheezing on exam, not hypoxic
-medically ready for DC to SNF
Suspect acute delirium
-steroids stopped as above
-patient very sensitive to anti-psychotics per , he responds to medical marijuana at home
-patient with minimal PO intake although improved 03/19 per . Ensure ordered
patient with hypoactive delirium/fatigue in setting of covid and prolonged hospitalization - needs SNF.
Lateral malleolus non-displaced fracture
-appreciate Ortho
-WBAT RLE in high-tide CAM boot. Patient to follow-up with orthopedics outpatient
-waiting on DC to SNF
-medically ready for DC
Urinary Tract Infection was ruled out
Constipation
Stercoral Colitis
-attempt at disimpaction in ER but too proximal
-he is status post enema, now with BM's
-bowel regimen - will stop daily as he's now having loose stools
Hyponatremia
monitor
Hx CVA with Aphasia
-continue IMMIGRATION INSPECTOR Xarelto
-IMMIGRATION INSPECTOR Statin
Paroxysmal Atrial Fibrillation on Xarelto
-IMMIGRATION INSPECTOR Xarelto
-IMMIGRATION INSPECTOR Metoprolol
Essential HTN - IMMIGRATION INSPECTOR Metoprolol
DVTppx Xarelto
Full code
Discussed with spouse
Anticipated Discharge: Within 24 hours
Subjective/Interval History
-
Date of Service: March 22, 2025
Denies pain
Objective Data
-
Labs:
Laboratory Results
03/22/25
09:53
WBC 6.5
Hgb 13.7 D
Hct 39.5
Plt Count 205 D
Sodium 134 L
Potassium 3.6
Chloride 102
Carbon Dioxide 28
BUN 15
Creatinine 0.8
Glucose 84
Calcium 8.2 L
Vital Signs:
Vital Signs
Temp Pulse Resp BP Pulse Ox
100.4 F H 94 16 153/81 92
03/22/25 07:00 03/22/25 07:00 03/22/25 07:00 03/22/25 07:00 03/22/25 07:00
I&O
03/21/25 03/22/25 03/23/25
06:59 06:59 06:59
Intake Total 600 / 600 120 / 120
Output Total 1150 / 1150 475 / 475
Balance -550 / -550 -355 / -355
[2025-03-22 15:00] VITALS: BP 158/75
[2025-03-22 15:42] VITALS: BP 158/75; PULSE 82; O2SAT 93
[2025-03-22 15:59] VITALS: BP 158/75
[2025-03-22] MEDS: DESYREL 75 MG PO (23:30)
[2025-03-22] MEDS: LIPITOR 60 MG PO (23:31)
[2025-03-22] MEDS: TOPROL XL 12.5 MG PO (23:32)
[2025-03-22] MEDS: XARELTO 20 MG PO (23:33)
[2025-03-22 23:40] VITALS: BP 160/72
[2025-03-23 06:37] LABS: Hematocrit 36.7 % (39.0-52.0); Hemoglobin 12.9 g/dL (13.0-18.0); Mean Corp Hgb Conc. 35.1 g/dL (33.0-37.0); Mean Corpuscular Volume 89.3 fL (80.0-94.0); Platelet Count 182 10^3/uL (130-400); Red Cell Dist. Width 12.5 % (11.5-14.5)
[2025-03-23 07:02] LABS: Blood Urea Nitrogen 14 mg/dl (9-20); Calcium 8.4 mg/dl (8.4-10.2); Carbon Dioxide 26 mmol/L (22-30); Chloride 103 mmol/L (98-107); Estimated Creatinine Clearance 67 ml/min; Glucose 86 mg/dl (70-99); Potassium 3.6 mmol/L (3.5-5.1); Sodium 133 mmol/L (135-145); eGFR > 60.00
[2025-03-23 07:42] VITALS: BP 108/62
[2025-03-23 09:06] LABS: Nucleated Red Blood Cells % 0 % (-)
[2025-03-23] MEDS: MUCINEX PO (09:22)
[2025-03-23] MEDS: TYLENOL 1000 MG PO ×2 (09:26→23:06)
[2025-03-23] MEDS: HIPREX 1 GRAM PO (09:26)
[2025-03-23] MEDS: ROBITUSSIN 600 MG PO ×2 (09:26→23:04)
--- NOTE | 2025-03-23 11:33 | W.PN.HOSP.TC ---
Today's Communication/Plan
-
Monitor vital signs see plan
Discharge today fast placement, special education case manager aware
Discussed with spouse
Off isolation
Assessment / Plan
Assessment / Plan
General: Well Developed, Well Nourished
HEENT: NormoCephalic,anicteric
Respiratory: Clear, Non Labored Respirations and Decreased Breath Sounds
Cardiac: S1/S2 and Regular Rhythm
GI: Soft, Non Tender, Non Distended and Normal Bowel Sounds
Genito-urinary: Jara
Musculoskeletal: No Edema
Neuro: Awake, aphasia
Psych: Calm
Covid +, sx onset 03/10-03/11; --> now off isolation
TME 2/2 Above
Sepsis in setting of TME 2/2 Covid
Sepsis due to Covid with organ dysfunction of TME and/or lactic acidosis
-Lactic acidosis, resolved
-No indication for Remdesivir especially given interactions. Spouse agrees.
-stopped Decadron given increase in agitation; no wheezing on exam, not hypoxic
-medically ready for DC to SNF
off isolation
Suspect acute delirium
-steroids stopped as above
-patient very sensitive to anti-psychotics per , he responds to medical marijuana at home
-patient with minimal PO intake although improved 03/19 per . Ensure ordered
patient with hypoactive delirium/fatigue in setting of covid and prolonged hospitalization - needs SNF.
Lateral malleolus non-displaced fracture
-appreciate Ortho
-WBAT RLE in high-tide CAM boot. Patient to follow-up with orthopedics outpatient
-waiting on DC to SNF
-medically ready for DC
Urinary Tract Infection was ruled out
Constipation
Stercoral Colitis
-attempt at disimpaction in ER but too proximal
-he is status post enema, now with BM's
-bowel regimen - will stop daily as he's now having loose stools
Hyponatremia
monitor
Hx CVA with Aphasia
-continue DOULA Xarelto
-DOULA Statin
Paroxysmal Atrial Fibrillation on Xarelto
-DOULA Xarelto
-DOULA Metoprolol
Essential HTN - DOULA Metoprolol
DVTppx Xarelto
Full code
Discussed with spouse
Anticipated Discharge: Today
Subjective/Interval History
-
Date of Service: March 23, 2025
denies nausea
Objective Data
-
Labs:
Laboratory Results
03/23/25
05:52
WBC 6.3
Hgb 12.9 L
Hct 36.7 L
Plt Count 182
Sodium 133 L
Potassium 3.6
Chloride 103
Carbon Dioxide 26
BUN 14
Creatinine 0.8
Glucose 86
Calcium 8.4
Vital Signs:
Vital Signs
Temp Pulse Resp BP Pulse Ox
98.8 F 76 17 108/62 94
03/23/25 07:42 03/23/25 07:42 03/23/25 07:42 03/23/25 07:42 03/23/25 07:42
I&O
03/22/25 03/23/25 03/24/25
06:59 06:59 06:59
Intake Total 120 / 120
Output Total 475 / 475 200 / 200
Balance -355 / -355 -200 / -200
[2025-03-23 15:30] VITALS: BP 121/62
[2025-03-23] MEDS: ZETIA 10 MG PO (17:19)
--- NOTE | 2025-03-23 17:19 | CM ---
Reviewed PT Ot indicates SNF.
Pt off resp isolation.
was upset because she said she never requested referral placed with [facility] nor [facility] .
Pt s requested [facility] -no bed,[facility] -no bed, [facility] no beds.[facility] no bed as per care port
LM with Agustín called again Carolina said call SNF in am unsure of bed availability .
PLAN Locate SNF
[2025-03-23 23:00] VITALS: BP 157/85
[2025-03-23] MEDS: DESYREL 75 MG PO (23:06)
[2025-03-23] MEDS: LIPITOR 60 MG PO (23:07)
[2025-03-23] MEDS: TOPROL XL 12.5 MG PO (23:08)
[2025-03-23 23:10] VITALS: BP 131/73
[2025-03-23] MEDS: XARELTO 20 MG PO (23:11)
[2025-03-24 06:51] LABS: Blood Urea Nitrogen 12 mg/dl (9-20); Calcium 8.6 mg/dl (8.4-10.2); Carbon Dioxide 29 mmol/L (22-30); Chloride 103 mmol/L (98-107); Estimated Creatinine Clearance 67 ml/min; Glucose 92 mg/dl (70-99); Potassium 3.5 mmol/L (3.5-5.1); Sodium 135 mmol/L (135-145); eGFR > 60.00
[2025-03-24 07:04] LABS: Hematocrit 42.2 % (39.0-52.0); Hemoglobin 14.4 g/dL (13.0-18.0); Mean Corp Hgb Conc. 34.1 g/dL (33.0-37.0); Mean Corpuscular Volume 91.5 fL (80.0-94.0); Platelet Count 203 10^3/uL (130-400); Red Cell Dist. Width 12.5 % (11.5-14.5)
[2025-03-24 07:43] LABS: Nucleated Red Blood Cells % 0 % (-)
[2025-03-24 07:52] VITALS: BP 140/62
[2025-03-24] MEDS: HIPREX PO ×2 (09:08)
[2025-03-24] MEDS: TYLENOL PO ×2 (09:08)
[2025-03-24] MEDS: ROBITUSSIN 600 MG PO (09:08)
--- NOTE | 2025-03-24 09:33 | PTCARENOTE ---
Pt refused morning Hiprex and Tylenol. RN explained the purpose of medications and risks of refusing. Pt still refused. RN attempted again at a later time and pt still refused.
--- NOTE | 2025-03-24 09:50 | CM ---
Addendum entered by Rudolph Blancas 03/24/25 12:26:
Rajan declined
Received call from [facility], can accept patient today
Updated spouse via phone, informed of acceptance at [facility]. Spouse agreeable
Updated hospitalist, agreeable to discharge today
Patient will need ambulance transport, forms tubed to 3W
IMM verbally reviewed w/ spouse
[facility]
Report: [phone] ext [phone]
(FAX D/C INSTRUCTIONS)
Plan: D/c to [facility] SNF
Original Note:
Chart reviewed. Plan for SNF at discharge
Followed up w/ Carolina/Bhaskar Travis, will review referral and follow up w/ CM after 10 am meeting
CM followed up w/ Janina/Rajan, will re review referral as there is bed availability now, will follow up w/ CM after her 2 meetings
Plan: SNF
--- NOTE | 2025-03-24 12:02 | W.PN.HOSP.TC ---
Addendum entered and electronically signed by Robin Bagley MD 03/24/25 12:30:
Time of discharge 37 minutes
Original Note:
Today's Communication/Plan
-
Monitor vital signs and see plan
Awaiting placement, case folder aware
Discussed with spouse
Assessment / Plan
Assessment / Plan
General: Well Developed, Well Nourished
HEENT: NormoCephalic,anicteric
Respiratory: Clear, Non Labored Respirations and Decreased Breath Sounds
Cardiac: S1/S2 and Regular Rhythm
GI: Soft, Non Tender, Non Distended and Normal Bowel Sounds
Genito-urinary: Jara
Musculoskeletal: No Edema
Neuro: Awake, aphasia
Psych: Calm
Covid +, sx onset 03/10-03/11; --> now off isolation
TME 2/2 Above
Sepsis in setting of TME 2/2 Covid
Sepsis due to Covid with organ dysfunction of TME and/or lactic acidosis
-Lactic acidosis, resolved
-No indication for Remdesivir especially given interactions. Spouse agrees.
-stopped Decadron given increase in agitation; no wheezing on exam, not hypoxic
-medically ready for DC to SNF
off isolation
Suspect acute delirium
-steroids stopped as above
-patient very sensitive to anti-psychotics per , he responds to medical marijuana at home
-patient with minimal PO intake although improved 03/19 per . Ensure ordered
patient with hypoactive delirium/fatigue in setting of covid and prolonged hospitalization - needs SNF. Awaiting placement
Lateral malleolus non-displaced fracture
-appreciate Ortho
-WBAT RLE in high-tide CAM boot. Patient to follow-up with orthopedics outpatient
-waiting on DC to SNF
-medically ready for DC
Urinary Tract Infection was ruled out
Constipation
Stercoral Colitis
-attempt at disimpaction in ER but too proximal
-he is status post enema, now with BM's
-bowel regimen - will stop daily as he's now having loose stools
Hyponatremia
monitor
Hx CVA with Aphasia
-continue MID LEVEL PROVIDER Xarelto
-MID LEVEL PROVIDER Statin
Paroxysmal Atrial Fibrillation on Xarelto
-MID LEVEL PROVIDER Xarelto
-MID LEVEL PROVIDER Metoprolol
Essential HTN - MID LEVEL PROVIDER Metoprolol
DVTppx Xarelto
Full code
Discussed with spouse
Anticipated Discharge: Today
Subjective/Interval History
-
Date of Service: March 24, 2025
No pain
Objective Data
-
Labs:
Laboratory Results
03/24/25
05:52
WBC 7.8
Hgb 14.4
Hct 42.2
Plt Count 203
Sodium 135
Potassium 3.5
Chloride 103
Carbon Dioxide 29
BUN 12
Creatinine 0.8
Glucose 92
Calcium 8.6
Vital Signs:
Vital Signs
Temp Pulse Resp BP Pulse Ox
98.1 F 69 18 140/62 97
03/24/25 07:52 03/24/25 07:52 03/24/25 07:52 03/24/25 07:52 03/24/25 07:52
I&O
03/23/25 03/24/25 03/25/25
06:59 06:59 06:59
Intake Total 1080 / 1080
Output Total 200 / 200 625 / 625
Balance -200 / -200 455 / 455
--- NOTE | 2025-03-24 12:30 | W.DCSUMMARY ---
Discharge Summary
Discharge Data
Date of Admission: 03/11/25
Date of Discharge: 03/24/25
-
Pending Results: No
Hospital Course
84-year-old male with past medical history of CVA with aphasia, paroxysmal atrial fibrillation on Xarelto, essential hypertension came to the hospital with COVID infection. Given patient's symptoms on admission patient was initially started on
Decadron however he started to have increased agitation so Decadron was discontinued. On this hospitalization patient appeared to have lateral malleolus nondisplaced fracture for which he was seen by orthopedics who recommended high tide Cam boot
which was delivered. Patient ambulatory status per orthopedics was weight-based as tolerated with high tide Cam boot. Orthopedics also recommended patient to follow-up with them closely outpatient for possible brace. On this hospitalization
patient also had constipation which continue to improve over time. He was also seen by physical therapy who recommended SNF. Once his symptoms continue to improve and he had SNF placement, he was then discharged to rehab with instructions to
follow-up with all his physicians outpatient.
Discharge Plan
-
Patient Disposition: Half-Way/SNF
Discharge Diagnosis/Procedures: weakness secondary to Covid-19
nondisplaced lateral malleolus fracture
Constipation
History of CVA with aphasia
Condition: Fair
Diet: As tolerated
Activity: As tolerated and Other activity
Additional Activity: WBAT RLE in high-tide CAM boot. Per ortho: Will plan for approximately 4-6 weeks in boot followed by transitioning into Raptor ankle brace.
Driving Restrictions: No driving
Bathing Restrictions: None
Other Services: PT and OT
Referrals:
Cosme Klein MD [Family Provider, Family Practice] - in less than 1 week
Billy Marquis MD [Active, Orthopedics] - in two weeks
Prescriptions:
New
guaifenesin 100 mg/5 mL Liquid
600 mg PO BID Qty: 0 0RF
acetaminophen [Tylenol Extra Strength] 500 mg Tablet
1,000 mg PO BID Qty: 0 0RF
Continued
metoprolol succinate 25 mg Tablet Extended Release 24 Hr
12.5 mg PO HS
omega [id number]-fish oil [Fish Oil] 1,000 mg (120 mg-180 mg) Capsule
1 cap PO DAILY
ezetimibe 10 MG tablet
10 mg PO Q48H
Patient Comments:
cholecalciferol (vitamin D3) 2,000 UNITS tablet
2,000 units PO DAILY
trazodone 50 mg Tablet
75 mg PO HS
methenamine hippurate 1 gram Tablet
1 g PO DAILY
Medical Marijuana
1 dose PO BID PRN (Reason: agitation)
atorvastatin 40 mg Tablet
60 mg PO HS
therapeutic multivitamin Tablet
1 tab PO DAILY
Xarelto 20 MG tablet
20 mg PO HS Qty: 30 0RF
Discharge Orders:
Discharge Patient (As Directed); Ordered 03/24/25
Ordered By: Robin Bagley
Discharge Date and Time
Discharge Date/Time: 03/24/25 17:30
Print Language: FILIPINO
[2025-03-24 15:10] VITALS: BP 132/75
== END 2025-03-24 17:30 | DRG 871 ==
LOC: 3 WEST ACU 15:04
PROVIDERS: Nurse Practitioner Family; ADMITTING PHYSICIAN Student in an Organized Health Care Education/Training Program; ATTENDING PHYSICIAN Internal Medicine; CONSULT PHYSICIAN Orthopaedic Surgery; EMERGENCY PHYSICIAN Student in an Organized Health Care Education/Training Program; FAMILY PHYSICIAN Family Medicine
DX: A41.89 Other specified sepsis (principal); G92.8 Other toxic encephalopathy; U07.1 COVID-19; E87.20 Acidosis, unspecified; E87.1 Hypo-osmolality and hyponatremia; F03.93 Unspecified dementia, unspecified severity, with mood disturbance; F03.911 Unspecified dementia, unspecified severity, with agitation; R65.20 Severe sepsis without septic shock; S82.64XA Nondisplaced fracture of lateral malleolus of right fibula, initial encounter for closed fracture; K59.00 Constipation, unspecified; I69.320 Aphasia following cerebral infarction; I48.0 Paroxysmal atrial fibrillation; I10 Essential (primary) hypertension; I25.10 Atherosclerotic heart disease of native coronary artery without angina pectoris; J44.9 Chronic obstructive pulmonary disease, unspecified; F32.A Depression, unspecified; N31.9 Neuromuscular dysfunction of bladder, unspecified; E78.00 Pure hypercholesterolemia, unspecified; Z87.891 Personal history of nicotine dependence; Z91.040 Latex allergy status; Z88.1 Allergy status to other antibiotic agents; I77.811 Abdominal aortic ectasia; N21.0 Calculus in bladder; N40.0 Benign prostatic hyperplasia without lower urinary tract symptoms; W19.XXXA Unspecified fall, initial encounter; Z79.01 Long term (current) use of anticoagulants; Z79.899 Other long term (current) drug therapy
CPT/HCPCS: 71045; 73600; 74177; 80048; 80053; 81003; 81015; 83605; 83735; 85025; 85027; 87040; 87086; 87324; 87449; 87502; 87811; 93005; 94640; 96361; 96374; 96375; 97163; 97167; 97530; 97535; 99285; Q9967